=== PATIENT | female | born 1940 | race Native Hawaiian/Other Pacific Islander ===

== ENCOUNTER → 2017-04-29 | Outpatient (CLI) | payer MEDICARE ==
--- NOTE | 2017-04-30 12:15 | PCN ---
DATE OF SERVICE: 04/29/2017 STRESS ECHOCARDIOGRAM INDICATION: Chest pain. BASELINE HEART RATE: 66 BASELINE BLOOD PRESSURE: 130/62 MAXIMUM HEART RATE: 128 MAXIMUM BLOOD PRESSURE: 202/52 85% MPHR: 123 100% MPHR: 145 METS: 7.0 MAXIMUM STAGE REACHED: 2 TOTAL EXERCISE TIME: 5:30 Baseline EKG shows sinus rhythm, normal axis, normal interval. Patient exercised on Benja protocol for a total of 5:30 minutes achieved 7.0 METS, 88% of predicted maximum heart rate without chest pain or diagnostic ST segment depression. Baseline echo shows normal left ventricular size, wall motion and systolic function. Post-exercise, there is normal hyperdynamic response of all segments of myocardium noted. CONCLUSION: 1. Limited exercise tolerance. 2. Negative stress test by EKG criteria. 3. Negative stress echo. MTDD
== END | disposition home or self-care (01) ==
LOC: RADNMMAIN 09:49
PROVIDERS: ATTEND Family Medicine
DX: R07.89 Other chest pain (principal); I10 Essential (primary) hypertension
CPT/HCPCS: 93017; 93350

== ENCOUNTER → 2021-01-23 | Outpatient (CLI) | payer MEDICARE ==
--- NOTE | 2021-01-23 09:07 | CT ---
EXAMINATION TYPE: CT angio head DATE OF EXAM: 01/23/2021 8:21 AM COMPARISON: CT and MRI brain June 19, 2016. HISTORY: Head pressure, dizziness, tinnitus, CT DLP: 1911 mGycm Automated exposure control for dose reduction was used. TECHNIQUE: Performed without and with IV Contrast, patient injected with 100 mL of Isovue 370. 3D reconstructed images are created on an independent workstation and reviewed.. FINDINGS: Noncontrast images show no acute intracranial hemorrhage or midline shift. Mild ventricular and sulca l prominence. -white matter differentiation maintained. Globes are intact and visualized sinuses are clear. No suspicious new opacification mastoid air cells. There is codominant vertebrobasilar system patent to basilar junction. There is patent right posterio r communicating artery and patent left posterior communicating artery. Hypoplastic left P1 segment wi th filling of left P2 segment due to patent left posterior communicating artery. No significant focal stenosis or aneurysmal change. There is hypoplastic right A1 segment with filling of the A2 segment due to patent anterior communicating artery. No significant focal stenosis or aneurysmal change. IMPRESSION: No aneurysmal change to level of [place]. No acute findings evident.
== END | disposition home or self-care (01) ==
LOC: RADCTMAIN 07:08
PROVIDERS: ATTEND Family Medicine
DX: R42 Dizziness and giddiness (principal); H93.19 Tinnitus, unspecified ear
CPT/HCPCS: 82565; 84520; 70496; 36415; Q9967

== ENCOUNTER 2021-04-25 15:31 | Emergency (ER) | payer MEDICARE ==
[2021-04-25 16:54] VITALS: PULSE 71; TEMP 97.9
[2021-04-25] MEDS ORDERED: MECLIZINE 25 MG TAB PO STA (17:12)
--- NOTE | 2021-04-25 17:20 | ED ---
General Adult HPI - General Chief complaint: Dizziness Stated complaint: dizziness Time Seen by Provider: 04/25/21 16:50 Source: patient, RN notes reviewed, old records reviewed Mode of arrival: wheelchair Limitations: no limitations - History of Present Illness Initial comments: This is a 80-year-old female presents emergency Department complaining of intermittent dizziness over the last month. Patient states she feels as though she's given a fall over when it occurs and it typically lasts for a few minutes to an hour. Patient states movement does increase slightly. Patient states she had in the waiting room because currently she only has now she looks left to right. Patient denies any headache. Patient denies any numbness weakness. Patient denies any recent fever chills or cough per patient denies any new tinnitus or deafness. Patient denies chest pain palpitations difficulty breathing shortness breath. Patient denies any recent nausea vomiting diarrhea. - Related Data Home Medications Medication Instructions Recorded Confirmed ALPRAZolam [Xanax] 0.25 mg PO BID PRN 06/19/16 04/25/21 Lisinopril-Hctz 20-12.5 mg 1 tab PO DAILY 04/25/21 04/25/21 [Zestoretic 20-12.5] methocarbamoL [Methocarbamol] 500 mg PO TID PRN 04/25/21 04/25/21 Previous Rx's Medication Instructions Recorded Meclizine [Antivert] 25 mg PO TID #20 tab 04/25/21 Allergies Allergy/AdvReac Type Severity Reaction Status Date / Time chocolate flavor Allergy Rash/Hives Verified 04/25/21 18:33 Review of Systems ROS Statement: Those systems with pertinent positive or pertinent negative responses have been documented in the HPI. ROS Other: All systems not noted in ROS Statement are negative. 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 Patient is nontoxic and well- hydrated and is in mild distress. ENT: Neck is soft and supple. No significant lymphadenopathy is noted. Oropharynx is clear. Moist mucous membranes. Neck has full range of motion without el iciting any pain. EYES: The sclera were anicteric and conjunctiva were pink and moist. Extraocular movements were intact and pupils were equal round and reactive to light. Eyelids were unremarkable. PULMONARY: Unlabored respirations. Good breath sounds bilaterally. No audible rales rhonchi or wheezing was noted. CARDIOVASCULAR: There is a regular rate and rhythm without any murmurs gallops or rubs. ABDOMEN: Soft and nontender with normal bowel sounds. SKIN: Skin is clear with no lesions or rashes and otherwise unremarkable. NEUROLOGIC: Patient is alert and oriented x3. Cranial nerves II through XII are grossly intact. Motor and sensory are also intact. Normal speech, volume and content. Symmetrical smile. Cerebellar exam grossly intact. Patient moves her head left to right she feels the sensation of the dizziness she was describing earlier occur. MUSCULOSKELETAL: Normal extremities with adequate strength and full range of motion. No lower extremity swelling or edema. No calf tenderness. LYMPHATICS: No significant lymphadenopathy is noted PSYCHIATRIC: Normal psychiatric evaluation. Limitations: no limitations Course Vital Signs 04/25/21 16:51 Temperature 97.9 F Pulse Rate 71 Respiratory 20 Rate Blood Pressure 165/73 O2 Sat by Pulse 99 Oximetry Medical Decision Making - Medical Decision Making chest x-ray shows no acute abnormality. CT of the brain shows no acute abnormality. Patient received Antivert in the emergency department seemed to improve her symptoms. Patient will be discharged with the same. EKG shows normal sinus rhythm at 69 bpm GA interval is 174 QRS is 84 QT interval 418 QTC is 447. Patient's EKG shows no ST segment elevation or depression. - Lab Data Result diagrams: 04/25/21 17:34 04/25/21 17:34 Lab Results 04/25/21 04/25/21 04/25/21 Range/Units 17:34 17:34 17:34 WBC 10.7 H (3.8-10.6) k/uL RBC 5.03 (3.80-5.40) m/uL Hgb 14.3 (11.4-16.0) gm/dL Hct 42.4 (34.0-46.0) % MCV 84.4 (80.0-100.0) fL MCH 28.4 (25.0-35.0) pg MCHC 33.6 (31.0-37.0) g/dL RDW 13.1 (11.5-15.5) % Plt Count 264 (150-450) k/uL MPV 7.9 Neutrophils % 74 % Lymphocytes % 18 % Monocytes % 5 % Eosinophils % 1 % Basophils % 1 % Neutrophils # 7.9 H (1.3-7.7) k/uL Lymphocytes # 1.9 (1.0-4.8) k/uL Monocytes # 0.5 (0-1.0) k/uL Eosinophils # 0.1 (0-0.7) k/uL Basophils # 0.1 (0-0.2) k/uL PT 10.2 (9.0-12.0) sec INR 0.9 (<1.2) APTT 22.7 (22.0-30.0) sec Sodium 131 L (137-145) mmol/L Potassium 3.8 (3.5-5.1) mmol/L Chloride 93 L (98-107) mmol/L Carbon Dioxide 27 (22-30) mmol/L Anion Gap 11 mmol/L BUN 15 (7-17) mg/dL Creatinine 0.79 (0.52-1.04) mg/dL Est GFR (CKD-EPI)AfAm 83 (>60 ml/min/1.73 sqM) Est GFR (CKD-EPI)NonAf 72 (>60 ml/min/1.73 sqM) Glucose 108 H (74-99) mg/dL Calcium 9.4 (8.4-10.2) mg/dL Magnesium 2.0 (1.6-2.3) mg/dL Total Bilirubin 0.5 (0.2-1.3) mg/dL AST 28 (14-36) U/L ALT 16 (4-34) U/L Alkaline Phosphatase 116 (38-126) U/L Troponin I (0.000-0.034) ng/mL Total Protein 7.7 (6.3-8.2) g/dL Albumin 4.8 (3.5-5.0) g/dL 04/25/21 Range/Units 17:34 WBC (3.8-10.6) k/uL RBC (3.80-5.40) m/uL Hgb (11.4-16.0) gm/dL Hct (34.0-46.0) % MCV (80.0-100.0) fL MCH (25.0-35.0) pg MCHC (31.0-37.0) g/dL RDW (11.5-15.5) % Plt Count (150-450) k/uL MPV Neutrophils % % Lymphocytes % % Monocytes % % Eosinophils % % Basophils % % Neutrophils # (1.3-7.7) k/uL Lymphocytes # (1.0-4.8) k/uL Monocytes # (0-1.0) k/uL Eosinophils # (0-0.7) k/uL Basophils # (0-0.2) k/uL PT (9.0-12.0) sec INR (<1.2) APTT (22.0-30.0) sec Sodium (137-145) mmol/L Potassium (3.5-5.1) mmol/L Chloride (98-107) mmol/L Carbon Dioxide (22-30) mmol/L Anion Gap mmol/L BUN (7-17) mg/dL Creatinine (0.52-1.04) mg/dL Est GFR (CKD-EPI)AfAm (>60 ml/min/1.73 sqM) Est GFR (CKD-EPI)NonAf (>60 ml/min/1.73 sqM) Glucose (74-99) mg/dL Calcium (8.4-10.2) mg/dL Magnesium (1.6-2.3) mg/dL Total Bilirubin (0.2-1.3) mg/dL AST (14-36) U/L ALT (4-34) U/L Alkaline Phosphatase (38-126) U/L Troponin I <0.012 (0.000-0.034) ng/mL Total Protein (6.3-8.2) g/dL Albumin (3.5-5.0) g/dL Disposition Clinical Impression: Vertigo Disposition: HOME SELF-CARE Instructions (If sedation given, give patient instructions): Vertigo (ED) Prescriptions: Meclizine [Antivert] 25 mg PO TID #20 tab Is patient prescribed a controlled substance at d/c from ED?: No Referrals: Frankie Cardenas MD [Primary Care Provider] - 1-2 days Time of Disposition: 18:37
[2021-04-25 17:42] LABS: Basophils # (A) 0.1 k/uL (0-0.2); Basophils % (A) 1 %; Eosinophils # (A) 0.1 k/uL (0-0.7); Eosinophils % (A) 1 %; HCT 42.4 % (34.0-46.0); HGB 14.3 gm/dL (11.4-16.0); Lymphocytes # (A) 1.9 k/uL (1.0-4.8); Lymphocytes % (A) 18 %; MCH 28.4 pg (25.0-35.0); MCHC 33.6 g/dL (31.0-37.0); MCV 84.4 fL (80.0-100.0); Mean Platelet Volume 7.9; Monocytes # (A) 0.5 k/uL (0-1.0); Monocytes % (A) 5 %; Neutrophils # (A) 7.9 k/uL (1.3-7.7); Neutrophils % (A) 74 %; Platelet Count 264 k/uL (150-450); RBC 5.03 m/uL (3.80-5.40); RDW 13.1 % (11.5-15.5); WBC 10.7 k/uL (3.8-10.6)
[2021-04-25 17:54] LABS: Albumin 4.8 g/dL (3.5-5.0); Calcium 9.4 mg/dL (8.4-10.2); Potassium 3.8 mmol/L (3.5-5.1); Total Bilirubin 0.5 mg/dL (0.2-1.3); Total Protein 7.7 g/dL (6.3-8.2)
[2021-04-25 17:56] LABS: INR 0.9 (<1.2); Partial Thromboplastin Time 22.7 sec (22.0-30.0); Prothrombin Time 10.2 sec (9.0-12.0)
--- NOTE | 2021-04-25 18:08 | CT ---
EXAMINATION TYPE: CT brain wo con DATE OF EXAM: 04/25/2021 COMPARISON: 06/19/2016 HISTORY: Dizziness. CT DLP: 1019.4 mGycm Automated exposure control for dose reduction was used. Exam performed without contrast. There is some cerebral cortical atrophy. There is no mass effect nor midline shift. There is no sign of intracranial hemorrhage. Calvarium is intact. Skull base is intact. There is normal aeration of th e mastoid sinuses. IMPRESSION: Mild atrophy. No acute intracranial abnormality.
--- NOTE | 2021-04-25 18:10 | XR ---
EXAMINATION TYPE: XR chest 2V DATE OF EXAM: 04/25/2021 COMPARISON: 06/19/2016 HISTORY: Dizziness. Chest pain. TECHNIQUE: FINDINGS: Heart is normal. Lungs are clear of infiltrate. Thoracic aorta is atheromatous. There are n o hilar masses. There are chest leads. The bony thorax is intact. IMPRESSION: No active cardiopulmonary disease. No change. Normal heart.
[2021-04-25 19:23] VITALS: RESP 18
[2021-04-25 19:24] VITALS: BP 175/69
== END 2021-04-25 19:15 | disposition home or self-care (01) ==
LOC: EC 15:31
DX: R42 Dizziness and giddiness (principal); I10 Essential (primary) hypertension; F41.9 Anxiety disorder, unspecified
CPT/HCPCS: 36415; 70450; 71046; 80053; 83735; 84484; 85025; 85610; 85730; 93005; 99285

== ENCOUNTER 2021-12-01 18:06 | Inpatient (IN) | payer MEDICARE ==
[2021-12-01] MEDS ORDERED: DICYCLOMINE 10 MG/ML 2 ML AMP IM STA (19:19)
[2021-12-01] MEDS ORDERED: ONDANSETRON 4 MG/2 ML VIAL IVP STA (19:19)
[2021-12-01] MEDS ORDERED: SODIUM CHLORIDE 0.9% 1,000 ML IV STA (19:19)
[2021-12-01] MEDS ORDERED: SODIUM CHLORIDE 0.9% 500 ML 500 ML IV STA (19:19)
[2021-12-01] MEDS ORDERED: FAMOTIDINE 20 MG/2 ML VIAL IV STA (19:20)
--- NOTE | 2021-12-01 19:22 | ED ---
General Adult HPI - General Chief complaint: Abdominal Pain Stated complaint: upper abd pain Time Seen by Provider: 12/01/21 19:07 Source: patient, family, RN notes reviewed Mode of arrival: ambulatory Limitations: no limitations - History of Present Illness Initial comments: Patient is a pleasant 81-year-old female presenting to the emergency department for nausea vomiting and diarrhea. Patient also having upper abdominal discomfort. Onset of symptoms was this morning. Patient has vomited approximately 5 times. Patient also has had some diarrhea, somewhat similar. Patient has discomfort in the mid upper abdomen. No history of similar symptoms previously. No fever. No upper respiratory symptoms or cough. - Related Data Home Medications Medication Instructions Recorded Confirmed ALPRAZolam [Xanax] 0.25 mg PO BID PRN 06/19/16 04/25/21 Lisinopril-Hctz 20-12.5 mg 1 tab PO DAILY 04/25/21 04/25/21 [Zestoretic 20-12.5] methocarbamoL [Methocarbamol] 500 mg PO TID PRN 04/25/21 04/25/21 Previous Rx's Medication Instructions Recorded Meclizine [Antivert] 25 mg PO TID #20 tab 04/25/21 Allergies Allergy/AdvReac Type Severity Reaction Status Date / Time chocolate flavor Allergy Rash/Hives Verified 12/01/21 18:51 Review of Systems ROS Statement: Those systems with pertinent positive or pertinent negative responses have been documented in the HPI. ROS Other: All systems not noted in ROS Statement are negative. Constitutional: Denies: fever, chills Eyes: Denies: eye pain ENT: Denies: ear pain, congestion Respiratory: Denies: cough, dyspnea Cardiovascular: Denies: chest pain Endocrine: Denies: fatigue Gastrointestinal: Reports: as per HPI, abdominal pain, nausea, vomiting, eugene rrhea. 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 History of Any Multi-Drug Resistant Organisms: None Reported Past Surgical History: No Surgical Hx Reported Past Psychological History: Anxiety Smoking Status: Never smoker Past Alcohol Use History: None Reported Past Drug Use History: None Reported General Exam Limitations: no limitations General appearance: alert, in no apparent distress Head exam: Present: normocephalic Eye exam: Present: normal appearance Neck exam: Present: normal inspection Respiratory exam: Present: normal lung sounds bilaterally Cardiovascular Exam: Present: regular rate, normal rhythm Expanded Peripheral pulses: 2+: Radial (R), Radial (L), Dorsalis Pedis (R), Dorsalis Pedis (L) GI/Abdominal exam: Present: soft, tenderness (Moderate epigastric tenderness to palpation), normal bowel sounds. Absent: distended, guarding, rebound, rigid, pulsatile mass Extremities exam: Present: normal inspection Neurological exam: Present: alert Psychiatric exam: Present: normal affect, normal mood Course Vital Signs 12/01/21 18:48 Temperature 98 F Pulse Rate 72 Respiratory 18 Rate Blood Pressure 135/67 O2 Sat by Pulse 97 Oximetry EKG Findings - EKG Comments: EKG Findings:: No sinus rhythm rate 74. [place] 170. QRS 82. QT 416. QTc 461. Normal axis. Minimal LVH criteria. No acute ST change. Medical Decision Making - Medical Decision Making Patient reevaluated. Patient and family updated. Case was discussed with Dr. crockett, who will admit covering hospital call. Computed tomography scan has been ordered. - Lab Data Result diagrams: 12/01/21 19:34 12/01/21 19:34 Lab Results 12/01/21 12/01/21 12/01/21 Range/Units 19:34 19:34 19:34 WBC 18.0 H (3.8-10.6) k/uL RBC 4.86 (3.80-5.40) m/uL Hgb 14.3 (11.4-16.0) gm/dL Hct 42.6 (34.0-46.0) % MCV 87.5 (80.0-100.0) fL MCH 29.4 (25.0-35.0) pg MCHC 33.6 (31.0-37.0) g/dL RDW 13.8 (11.5-15.5) % Plt Count 294 (150-450) k/uL MPV 8.9 Neutrophils % 95 % Lymphocytes % 3 % Monocytes % 2 % Eosinophils % 0 % Basophils % 0 % Neutrophils # 17.0 H (1.3-7.7) k/uL Lymphocytes # 0.6 L (1.0-4.8) k/uL Monocytes # 0.3 (0-1.0) k/uL Eosinophils # 0.0 (0-0.7) k/uL Basophils # 0.0 (0-0.2) k/uL PT 11.0 (9.0-12.0) sec INR 1.0 (<1.2) APTT 21.8 L (22.0-30.0) sec Sodium 133 L (137-145) mmol/L Potassium 3.9 (3.5-5.1) mmol/L Chloride 95 L (98-107) mmol/L Carbon Dioxide 27 (22-30) mmol/L Anion Gap 11 mmol/L BUN 23 H (7-17) mg/dL Creatinine 1.22 H (0.52-1.04) mg/dL Est GFR (CKD-EPI)AfAm 48 (>60 ml/min/1.73 sqM) Est GFR (CKD-EPI)NonAf 42 (>60 ml/min/1.73 sqM) Glucose 191 H (74-99) mg/dL Calcium 9.4 (8.4-10.2) mg/dL Total Bilirubin 0.7 (0.2-1.3) mg/dL AST 55 H (14-36) U/L ALT 38 H (4-34) U/L Alkaline Phosphatase 116 (38-126) U/L Troponin I (0.000-0.034) ng/mL Total Protein 7.8 (6.3-8.2) g/dL Albumin 4.6 (3.5-5.0) g/dL Amylase 3067 H* (30-110) U/L Coronavirus (PCR) (Not Detectd) 12/01/21 12/01/21 Range/Units 19:34 19:34 WBC (3.8-10.6) k/uL RBC (3.80-5.40) m/uL Hgb (11.4-16.0) gm/dL Hct (34.0-46.0) % MCV (80.0-100.0) fL MCH (25.0-35.0) pg MCHC (31.0-37.0) g/dL RDW (11.5-15.5) % Plt Count (150-450) k/uL MPV Neutrophils % % Lymphocytes % % Monocytes % % Eosinophils % % Basophils % % Neutrophils # (1.3-7.7) k/uL Lymphocytes # (1.0-4.8) k/uL Monocytes # (0-1.0) k/uL Eosinophils # (0-0.7) k/uL Basophils # (0-0.2) k/uL PT (9.0-12.0) sec INR (<1.2) APTT (22.0-30.0) sec Sodium (137-145) mmol/L Potassium (3.5-5.1) mmol/L Chloride (98-107) mmol/L Carbon Dioxide (22-30) mmol/L Anion Gap mmol/L BUN (7-17) mg/dL Creatinine (0.52-1.04) mg/dL Est GFR (CKD-EPI)AfAm (>60 ml/min/1.73 sqM) Est GFR (CKD-EPI)NonAf (>60 ml/min/1.73 sqM) Glucose (74-99) mg/dL Calcium (8.4-10.2) mg/dL Total Bilirubin (0.2-1.3) mg/dL AST (14-36) U/L ALT (4-34) U/L Alkaline Phosphatase (38-126) U/L Troponin I 0.014 (0.000-0.034) ng/mL Total Protein (6.3-8.2) g/dL Albumin (3.5-5.0) g/dL Amylase (30-110) U/L Coronavirus (PCR) Not Detected (Not Detectd) Disposition Clinical Impression: Pancreatitis Disposition: ADMITTED IP TO THIS HOSP Is patient prescribed a controlled substance at d/c from ED?: No Referrals: Frankie Cardenas MD [Primary Care Provider] - 1-2 days Decision Time: 20:51
[2021-12-01 19:48] LABS: Basophils % (A) 0 %; Eosinophils % (A) 0 %; HCT 42.6 % (34.0-46.0); HGB 14.3 gm/dL (11.4-16.0); Lymphocytes # (A) 0.6 k/uL (1.0-4.8); Lymphocytes % (A) 3 %; MCH 29.4 pg (25.0-35.0); MCHC 33.6 g/dL (31.0-37.0); MCV 87.5 fL (80.0-100.0); Mean Platelet Volume 8.9; Monocytes # (A) 0.3 k/uL (0-1.0); Monocytes % (A) 2 %; Neutrophils % (A) 95 %; Platelet Count 294 k/uL (150-450); RBC 4.86 m/uL (3.80-5.40); RDW 13.8 % (11.5-15.5)
[2021-12-01 20:06] LABS: Albumin 4.6 g/dL (3.5-5.0); Calcium 9.4 mg/dL (8.4-10.2); Potassium 3.9 mmol/L (3.5-5.1); Total Bilirubin 0.7 mg/dL (0.2-1.3); Total Protein 7.8 g/dL (6.3-8.2)
[2021-12-01 20:25] LABS: Partial Thromboplastin Time 21.8 sec (22.0-30.0)
[2021-12-01] MEDS ORDERED: NALOXONE 0.4 MG/ML 1 ML VIAL IV PRN (20:51)
--- NOTE | 2021-12-01 22:01 | CT ---
CT scan abdomen and pelvis. History abdominal pain. Comparison none. TECHNIQUE: Images obtained from the diaphragm to the mid pelvis with intravenous contrast. There are delayed rodrigue ges. The contrast was Isovue 80 mL. FINDINGS: There is some mild interstitial infiltrate in the posterior lung martinez. Heart is enlarged. There is no pericardial effusion. There is no pleural effusion. Liver spleen and stomach appear intact. Gallbl adder is intact. The gallbladder is distended and measures 3.8 cm in diameter. There is no evidence of pancreatic mass. There is mild retroperitoneal edema in the right anterior pa rarenal space. Pancreatic duct is not dilated. The bile ducts are not dilated. There is no adrenal mass. Kidneys show satisfactory contrast opacification. There is no hydronephrosi s. There is no retroperitoneal adenopathy. Ureters are not dilated. Appendix appears normal. There is no sign of mesenteric adenopathy. The lumbar vertebra have normal alignment. Posterior elements are intact. There is no compression fra cture. There is some spurring in the lumbar spine. Sacroiliac joints are intact. IMPRESSION: There is right-sided retroperitoneal edema with fluid in the anterior pararenal space and adjacent t o the duodenum. This could relate to some duodenitis. No significant edema seen of the pancreatic hea d. No pancreatic mass. Pancreatitis is not excluded.
[2021-12-01 22:38] LABS: Appearance,Urine Clear (Clear); Bilirubin,Urine Negative (Negative); Blood,Urine Negative (Negative); Color,Urine Light Yellow; Glucose,Urine (UA) Trace (Negative); Ketones,Urine Negative (Negative); Leukocyte Esterase,Urine Negative (Negative); Nitrite,Urine Negative (Negative); PH, Urine 6.5 (5.0-8.0); Protein,Urine Negative (Negative); Specific Gravity,Urine 1.036 (1.001-1.035); Urobilinogen,Urine <2.0 mg/dL (<2.0)
[2021-12-01] MEDS: SODIUM CHLORIDE 0.9% 1,000 ML IV SCH (22:46)
[2021-12-01] MEDS: HYDROmorphone 0.5 MG/0.5 ML SYRINGE IVP PRN (23:30)
--- NOTE | 2021-12-02 00:12 | P.HPIM ---
History of Present Illness H&P Date: 12/01/21 Patient is an 81-year-old female with a PMH of hypertension who presents to the emergency room with complaints of abdominal pain. The patient reports that the pain started suddenly this morning, nonradiating, epigastric, 10 out of 10 in intensity, without alleviating or exacerbating features. She denied any prior history of such pain. Reports the pain was associated with nausea and too many episodes of vomiting to count. She reports biliary material in her vomiting without blood or fecal matter. Denied experiencing diarrhea. Further denied fever, chills. Reports no history of alcohol use or history of gallstones. Further denied chest discomfort, shortness of breath, cough, dizziness, headaches. CT abdomen and pelvis revealed findings consistent with pancreatic hepatitis and duodenitis. EKG revealed normal sinus rhythm at [address]/T-wave changes noted as reviewed by me. Laboratory evaluation was remarkable for leukocytosis of 18.0, lipase 01827, total bilirubin 0.7, sodium 133, BUN 23, creatinine 1.22, glucose 91, AST 55, ALT 38. Review of systems: Pertinent positives and negatives as discussed in HPI, a complete review of systems was performed and all other systems are negative. Physical examination: General: non toxic, no distress, appears at stated age, normal weight Derm: no unusual rashes/lesions no unusual ecchymoses, warm, dry Head: atraumatic, normocephalic, symmetric Eyes: EOMI, no lid lag, anicteric sclera, pupils equal round reactive to light ENT: Nose and ears atraumatic, no thrush, no pharyngeal erythema Neck: No thyromegaly, no cervical lymphadenopathy, trachea midline, supple Mouth: no lip lesion, mucus membranes moist Cardiovascular: S1S2 reg, no murmur, positive posterior tibial pulse bilateral, no edema, capillary refill less than 2 seconds Lungs: CTA bilateral, no rhonchi, no rales , no accessory muscle use Abdominal: soft, mild to moderate epigastric tenderness, no guarding, no appreciable organomegaly, normal bowel sounds Ext: no gross muscle atrophy, muscle strength 5 out of 5 in all 4 extremities grossly, no contractures, Neuro: CN II-XI grossly intact, light touch intact all 4 extremities, finger to nose within normal limits, Psych: Alert, oriented, appropriate affect Assessment/plan Acute pancreatitis, unclear etiology -Pain control -IV fluids -Discussed with the ED physician regarding no in-house GI service, who subsequently stated that no nearby facilities are accepting patients -Consult surgery in setting of gallbladder dilatation -NPO for now -Pain control -IVFs -Anti-emetics BUCK -Likely due to dehydration from nausea and vomiting -IV fluids -Monitor BMP Hypochloremic hyponatremia -Likely secondary to excessive vomiting with dehydration Hyperglycemia -Check A1c DVT prophylaxis -Heparin Subcu The patient is admitted with an anticipated greater than 2 midnight stay for evaluation of pancreatitis CODE STATUS: Full Code Discussed with: Patient Anticipated discharge date: 2-[address]: Home 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 History of Any Multi-Drug Resistant Organisms: None Reported Past Surgical History: No Surgical Hx Reported Past Psychological History: Anxiety Smoking Status: Never smoker Past Alcohol Use History: None Reported Past Drug Use History: None Reported Medications and Allergies Home Medications Medication Instructions Recorded Confirmed Type ALPRAZolam [Xanax] 0.25 mg PO BID PRN 06/19/16 12/01/21 History Lisinopril-Hctz 20-12.5 mg 1 tab PO HS 04/25/21 12/01/21 History [Zestoretic 20-12.5] Allergies Allergy/AdvReac Type Severity Reaction Status Date / Time chocolate flavor Allergy Rash/Hives Verified 12/01/21 21:21 Physical Exam Vitals: Vital Signs Temp Pulse Pulse Resp BP BP Pulse Ox 12/01/21 22:30 97.8 F 87 16 189/73 97 12/01/21 21:38 87 20 151/83 99 12/01/21 18:48 98 F 72 18 135/67 97 Intake and Output 12/01/21 12/01/21 12/01/21 06:59 14:59 22:59 Other: Weight 63.503 kg Results CBC & Chem 7: 12/01/21 19:34 12/01/21 19:34 Labs: Abnormal Lab Results - Last 24 Hours (Table) 12/01/21 12/01/21 12/01/21 Range/Units 19:34 19:34 19:34 WBC 18.0 H (3.8-10.6) k/uL Neutrophils # 17.0 H (1.3-7.7) k/uL Lymphocytes # 0.6 L (1.0-4.8) k/uL APTT 21.8 L (22.0-30.0) sec Sodium 133 L (137-145) mmol/L Chloride 95 L (98-107) mmol/L BUN 23 H (7-17) mg/dL Creatinine 1.22 H (0.52-1.04) mg/dL Glucose 191 H (74-99) mg/dL AST 55 H (14-36) U/L ALT 38 H (4-34) U/L Amylase 3067 H* (30-110) U/L Lipase 97349 H (23-300) U/L Ur Specific [place] (1.001-1.035) Urine Glucose (UA) (Negative) 12/01/21 Range/Units 22:30 WBC (3.8-10.6) k/uL Neutrophils # (1.3-7.7) k/uL Lymphocytes # (1.0-4.8) k/uL APTT (22.0-30.0) sec Sodium (137-145) mmol/L Chloride (98-107) mmol/L BUN (7-17) mg/dL Creatinine (0.52-1.04) mg/dL Glucose (74-99) mg/dL AST (14-36) U/L ALT (4-34) U/L Amylase (30-110) U/L Lipase (23-300) U/L Ur Specific [place] 1.036 H (1.001-1.035) Urine Glucose (UA) Trace H (Negative)
[2021-12-02] MEDS: HYDROmorphone 0.5 MG/0.5 ML SYRINGE IVP PRN ×4 (03:05→20:41)
[2021-12-02] MEDS: SODIUM CHLORIDE 0.9% 1,000 ML IV SCH ×3 (05:23→21:56)
[2021-12-02 07:46] LABS: Albumin 3.2 g/dL (3.5-5.0); Calcium 7.6 mg/dL (8.4-10.2); Potassium 3.8 mmol/L (3.5-5.1); Total Bilirubin 0.5 mg/dL (0.2-1.3); Total Protein 5.9 g/dL (6.3-8.2)
[2021-12-02] MEDS: HEPARIN SODIUM,PORCINE/PF 5,000 UNIT/0.5 ML SYRINGE SQ SCH ×2 (08:19→15:45)
[2021-12-02] MEDS: PANTOPRAZOLE 40 MG/10 ML VIAL IV SCH (08:19)
[2021-12-02] MEDS: ONDANSETRON 4 MG/2 ML VIAL IVP PRN ×2 (08:57→15:45)
--- NOTE | 2021-12-02 11:32 | P.PN ---
Subjective Progress Note Date: 12/02/21 Principal diagnosis: Patient still complaining of abdominal pain but it's improving Physical examination: General: non toxic, no distress, appears at stated age, normal weight Derm: no unusual rashes/lesions no unusual ecchymoses, warm, dry Head: atraumatic, normocephalic, symmetric Eyes: EOMI, no lid lag, anicteric sclera, pupils equal round reactive to light ENT: Nose and ears atraumatic, no thrush, no pharyngeal erythema Neck: No thyromegaly, no cervical lymphadenopathy, trachea midline, supple Mouth: no lip lesion, mucus membranes moist Cardiovascular: S1S2 reg, no murmur, positive posterior tibial pulse bilateral, no edema, capillary refill less than 2 seconds Lungs: CTA bilateral, no rhonchi, no rales , no accessory muscle use Abdominal: soft, mild to moderate epigastric tenderness, no guarding, no appreciable organomegaly, normal bowel sounds Ext: no gross muscle atrophy, muscle strength 5 out of 5 in all 4 extremities grossly, no contractures, Neuro: CN II-XI grossly intact, light touch intact all 4 extremities, finger to nose within normal limits, Psych: Alert, oriented, appropriate affect Assessment/plan Acute pancreatitis, unclear etiology Overall improving continue patient on nothing by mouth diet -Pain control -IV fluids -Discussed with the ED physician regarding no in-house GI service, who subsequently stated that no nearby facilities are accepting patients -Consult surgery in setting of gallbladder dilatation -NPO for now -Pain control -IVFs -Anti-emetics BUCK -Likely due to dehydration from nausea and vomiting -IV fluids -Monitor BMP Hypochloremic hyponatremia -Likely secondary to excessive vomiting with dehydration Hyperglycemia -Check A1c DVT prophylaxis -Heparin Subcu Objective - Vital Signs Vital signs: Vital Signs Temp 98.1 F 12/02/21 04:55 Pulse 70 12/02/21 04:55 Resp 16 12/02/21 08:00 BP 144/65 12/02/21 04:55 Pulse Ox 99 12/02/21 04:55 Intake & Output 12/01/21 12/02/21 12/02/21 18:59 06:59 18:59 Intake Total 1890 Balance 1890 Weight 63.503 kg 63.503 kg Intake: Intake, IV Titration 1300 Amount Sodium Chloride 0.9% 1, 1300 000 ml @ 130 mls/hr IV . Q7H42M [facility] Rx#:[id number] Oral 590 Other: # Voids 3 - Labs CBC & Chem 7: 12/01/21 19:34 12/02/21 06:57 Labs: Abnormal Lab Results - Last 24 Hours (Table) 12/01/21 12/01/21 12/01/21 Range/Units 19:34 19:34 19:34 WBC 18.0 H (3.8-10.6) k/uL Neutrophils # 17.0 H (1.3-7.7) k/uL Lymphocytes # 0.6 L (1.0-4.8) k/uL APTT 21.8 L (22.0-30.0) sec Sodium 133 L (137-145) mmol/L Chloride 95 L (98-107) mmol/L BUN 23 H (7-17) mg/dL Creatinine 1.22 H (0.52-1.04) mg/dL Glucose 191 H (74-99) mg/dL Calcium (8.4-10.2) mg/dL AST 55 H (14-36) U/L ALT 38 H (4-34) U/L Total Protein (6.3-8.2) g/dL Albumin (3.5-5.0) g/dL Amylase 3067 H* (30-110) U/L Lipase 96803 H (23-300) U/L Ur Specific [place] (1.001-1.035) Urine Glucose (UA) (Negative) 12/01/21 12/02/21 Range/Units 22:30 06:57 WBC (3.8-10.6) k/uL Neutrophils # (1.3-7.7) k/uL Lymphocytes # (1.0-4.8) k/uL APTT (22.0-30.0) sec Sodium 133 L (137-145) mmol/L Chloride (98-107) mmol/L BUN 19 H (7-17) mg/dL Creatinine (0.52-1.04) mg/dL Glucose 133 H (74-99) mg/dL Calcium 7.6 L (8.4-10.2) mg/dL AST (14-36) U/L ALT (4-34) U/L Total Protein 5.9 L (6.3-8.2) g/dL Albumin 3.2 L (3.5-5.0) g/dL Amylase 967 H* (30-110) U/L Lipase 3430 H (23-300) U/L Ur Specific [place] 1.036 H (1.001-1.035) Urine Glucose (UA) Trace H (Negative)
[2021-12-02 11:44] LABS: HCT 34.4 % (37.2-46.3); HGB 11.4 g/dL (12.0-15.0); MCH 28.9 pg (27.0-32.0); MCHC 33.1 g/dL (32.0-37.0); MCV 87.3 fL (80.0-97.0); Mean Platelet Volume 11.6 fL (9.5-12.2); NRBC Per 100 WBC 0 /100 WBCS (0.0-0.0); Platelet Count 249 X 10*3/uL (140-440); RBC 3.94 X 10*6/uL (4.10-5.20); RDW 13.4 % (11.5-14.5); WBC 13.21 X 10*3/uL (4.50-10.00)
--- NOTE | 2021-12-02 14:09 | P.GSCN ---
History of Present Illness Consult date: 12/02/21 History of present illness: CHIEF COMPLAINT: Pancreatitis HISTORY OF PRESENT ILLNESS: The patient is a 81-year-old female admitted for upper abdominal pain that started 2 days ago, 11/30/2021. She reports eating breakfast and include cereal. Later that day she developed increasing epigastric abdominal pain. The pain was moderate to severe. She reports family history of gallbladder disease including gallbladder removal and her daughter as well as granddaughter. Her pain is intermittent intolerable today. She has been nothing by mouth. PAST MEDICAL HISTORY: See list and reviewed PAST SURGICAL HISTORY: See list and reviewed MEDICATIONS: See list and reviewed ALLERGIES: See list and reviewed SOCIAL HISTORY: See list and reviewed FAMILY HISTORY: See list and reviewed REVIEW OF ORGAN SYSTEMS: CONSTITUTIONAL: No fevers or chills. No recent weight loss. EYES: Denies any trouble with vision. No glasses. HEENT: No difficulties with hearing. No nosebleeds. No difficulty swallowing. RESPIRATORY: Denies pneumonia. Denies any troubles with breathing or dyspnea on exertion. CARDIOVASCULAR: Denies any chest pain, palpitations, or recent heart attacks. Has hypertension. GASTROINTESTINAL: Denies fatty food intolerance. Denies change in bowel habits and gas bloat. GENITOURINARY: Denies any blood in urine or increased urinary frequency. NEUROLOGICAL: Denies any numbness or tingling along the distal extremities. No seizure disorders or headaches. MUSCULOSKELETAL: Denies any back pain, stiffness or joint arthritis. SKIN: No current skin cancer. No rash. PSYCHIATRIC: Denies current depression or suicidal thoughts. Has anxiety. ENDOCRINE: Denies current thyroid disorders. Denies any blood sugar glucose intolerance. HEME/LYMPHATIC: Denies any lumps and bumps around the neck. No recent deep venous thrombosis. ALLERGY/IMMUNOLOGY: No immunoglobulin therapy. No immune deficiencies. BREAST: Denies current breast lumps, pain or nipple discharge. PHYSICAL EXAM: VITALS: Reviewed CONSTITUTIONAL: Well developed and in no acute distress. EYES: Conjuctivae without sclera icterus. Extraocular movements grossly intact. HEAD, EARS, NOSE, THROAT: Moist buccal mucosa. Head is atraumatic, normocephalic. Hears conversational speech. No nasal drainage. NECK: Supple. No JV distention. No thyroidomegaly. RESPIRATORY: Non-labored respirations and equal bilateral excursions. No gross wheezes. CARDIOVASCULAR: Regular rate and rhythm. Extremities without moderate edema. Palpable 2+ radial pulses. ABDOMEN: Tender epigastrium. No peritonitis. LYMPH: No neck lymphadenopathy. MUSCULOSKELETAL: Nail and fingers with good capillary refill. SKIN: Warm and well perfused with good skin turgor. NEUROLOGIC: Cranial nerves II through XII grossly intact. Sensation upper and extremities intact. No focal or lateralizing signs. PSYCH: Appropriate affect. Alert and oriented to person, place and time. Displays appropriate insight. CLINCAL LABS: Reviewed. White blood cell a down from 18,000 to over 13,000. Hemoglobin down 14.3-11.4. Lipase elevated over 12,400 down to over 3400. Amylase on admission elevated over 3000. Calcium decreased from 9.4-7.6. IMAGING: CT of the abdomen and pelvis and up reviewed demonstrating dilation and inflammation of the duodenum. Pancreatic head with moderate inflammation. This is my independent interpretation. RADIOLOGY: Report reviewed of CT abdomen and pelvis demonstrating inflammation of the duodenum. Pancreatitis not excluded. ASSESSMENT: 1. Acute pancreatitis. PLAN: 1. Recommend gallbladder ultrasound to assess for causes of pancreatitis. 2. Nothing by mouth at this time with IV fluid hydration. 3. Repeat amylase lipase chemistries. ADVANCE DIRECTIVE: Thank you for this kind consultation. 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 History of Any Multi-Drug Resistant Organisms: None Reported Past Surgical History: No Surgical Hx Reported Past Psychological History: Anxiety Smoking Status: Never smoker Past Alcohol Use History: None Reported Past Drug Use History: None Reported Medications and Allergies Home Medications Medication Instructions Recorded Confirmed Type ALPRAZolam [Xanax] 0.25 mg PO BID PRN 06/19/16 12/01/21 History Lisinopril-Hctz 20-12.5 mg 1 tab PO HS 04/25/21 12/01/21 History [Zestoretic 20-12.5] Allergies Allergy/AdvReac Type Severity Reaction Status Date / Time chocolate flavor Allergy Rash/Hives Verified 12/01/21 21:21 Surgical - Exam Vital Signs Temp Pulse Resp BP Pulse Ox 98 F 72 18 135/67 97 12/01/21 18:48 12/01/21 18:48 12/01/21 18:48 12/01/21 18:48 12/01/21 18:48 Results - Labs 12/02/21 06:57 12/02/21 06:57 Abnormal Lab Results - Last 24 Hours (Table) 12/01/21 12/01/21 12/01/21 Range/Units 19:34 19:34 19:34 WBC 18.0 H (3.8-10.6) k/uL RBC (4.10-5.20) X 10*6/uL Hgb (12.0-15.0) g/dL Hct (37.2-46.3) % Neutrophils # 17.0 H (1.3-7.7) k/uL Lymphocytes # 0.6 L (1.0-4.8) k/uL APTT 21.8 L (22.0-30.0) sec Sodium 133 L (137-145) mmol/L Chloride 95 L (98-107) mmol/L BUN 23 H (7-17) mg/dL Creatinine 1.22 H (0.52-1.04) mg/dL Glucose 191 H (74-99) mg/dL Calcium (8.4-10.2) mg/dL AST 55 H (14-36) U/L ALT 38 H (4-34) U/L Total Protein (6.3-8.2) g/dL Albumin (3.5-5.0) g/dL Amylase 3067 H* (30-110) U/L Lipase 41964 H (23-300) U/L Ur Specific [place] (1.001-1.035) Urine Glucose (UA) (Negative) 12/01/21 12/02/21 12/02/21 Range/Units 22:30 06:57 06:57 WBC 13.21 H (3.8-10.6) k/uL RBC 3.94 L (4.10-5.20) X 10*6/uL Hgb 11.4 L (12.0-15.0) g/dL Hct 34.4 L (37.2-46.3) % Neutrophils # (1.3-7.7) k/uL Lymphocytes # (1.0-4.8) k/uL APTT (22.0-30.0) sec Sodium 133 L (137-145) mmol/L Chloride (98-107) mmol/L BUN 19 H (7-17) mg/dL Creatinine (0.52-1.04) mg/dL Glucose 133 H (74-99) mg/dL Calcium 7.6 L (8.4-10.2) mg/dL AST (14-36) U/L ALT (4-34) U/L Total Protein 5.9 L (6.3-8.2) g/dL Albumin 3.2 L (3.5-5.0) g/dL Amylase 967 H* (30-110) U/L Lipase 3430 H (23-300) U/L Ur Specific [place] 1.036 H (1.001-1.035) Urine Glucose (UA) Trace H (Negative) Diabetes panel 12/01/21 12/02/21 Range/Units 19:34 06:57 Sodium 133 L 133 L (137-145) mmol/L Potassium 3.9 3.8 (3.5-5.1) mmol/L Chloride 95 L 105 (98-107) mmol/L Carbon Dioxide 27 24 (22-30) mmol/L BUN 23 H 19 H (7-17) mg/dL Creatinine 1.22 H 0.97 (0.52-1.04) mg/dL Glucose 191 H 133 H (74-99) mg/dL Calcium 9.4 7.6 L (8.4-10.2) mg/dL AST 55 H 28 (14-36) U/L ALT 38 H 25 (4-34) U/L Alkaline Phosphatase 116 75 (38-126) U/L Total Protein 7.8 5.9 L (6.3-8.2) g/dL Albumin 4.6 3.2 L (3.5-5.0) g/dL Calcium panel 12/01/21 12/02/21 Range/Units 19:34 06:57 Calcium 9.4 7.6 L (8.4-10.2) mg/dL Albumin 4.6 3.2 L (3.5-5.0) g/dL Pituitary panel 12/01/21 12/02/21 Range/Units 19:34 06:57 Sodium 133 L 133 L (137-145) mmol/L Potassium 3.9 3.8 (3.5-5.1) mmol/L Chloride 95 L 105 (98-107) mmol/L Carbon Dioxide 27 24 (22-30) mmol/L BUN 23 H 19 H (7-17) mg/dL Creatinine 1.22 H 0.97 (0.52-1.04) mg/dL Glucose 191 H 133 H (74-99) mg/dL Calcium 9.4 7.6 L (8.4-10.2) mg/dL Adrenal panel 12/01/21 12/02/21 Range/Units 19:34 06:57 Sodium 133 L 133 L (137-145) mmol/L Potassium 3.9 3.8 (3.5-5.1) mmol/L Chloride 95 L 105 (98-107) mmol/L Carbon Dioxide 27 24 (22-30) mmol/L BUN 23 H 19 H (7-17) mg/dL Creatinine 1.22 H 0.97 (0.52-1.04) mg/dL Glucose 191 H 133 H (74-99) mg/dL Calcium 9.4 7.6 L (8.4-10.2) mg/dL Total Bilirubin 0.7 0.5 (0.2-1.3) mg/dL AST 55 H 28 (14-36) U/L ALT 38 H 25 (4-34) U/L Alkaline Phosphatase 116 75 (38-126) U/L Total Protein 7.8 5.9 L (6.3-8.2) g/dL Albumin 4.6 3.2 L (3.5-5.0) g/dL Assessment and Plan (1) Acute pancreatitis Current Visit: Yes Status: Acute Code(s): K85.90 - ACUTE PANCREATITIS WITHOUT NECROSIS OR INFECTION, UNSP SNOMED Code(s): 441274720 (2) Epigastric pain Current Visit: Yes Status: Acute Code(s): R10.13 - EPIGASTRIC PAIN SNOMED Code(s): 50455132 (3) Right upper quadrant abdominal pain Current Visit: Yes Status: Acute Code(s): R10.11 - RIGHT UPPER QUADRANT PAIN SNOMED Code(s): 200602217
--- NOTE | 2021-12-02 16:00 | US ---
EXAMINATION TYPE: US gallbladder DATE OF EXAM: 12/02/2021 COMPARISON: CT CLINICAL HISTORY: Right upper quadrant pain. Inpatient with Epigastric pain, N&V, diarrhea yesterday. EXAM MEASUREMENTS: Liver Length: 13.6 cm Gallbladder Wall: 0.3 cm CBD: 0.7 cm Right Kidney: 8.7 x 4.5 x 3.5 cm Pancreas: no masses seen Liver: no masses seen Gallbladder: multiple shadowing gallstones seen near neck and mid posterior wall Evidence for sonographic Yoo's sign: yes CBD: wnl, size is age appropriate for 8th decade Right Kidney: possible exophytic cyst seen superior to right kidney = 2.0 x 2.0 x 1.5cm. IMPRESSION: Are numerous gallstones. No dilated ducts.
[2021-12-03] MEDS: HEPARIN SODIUM,PORCINE/PF 5,000 UNIT/0.5 ML SYRINGE SQ SCH ×3 (00:11→15:11)
[2021-12-03] MEDS: HYDROmorphone 0.5 MG/0.5 ML SYRINGE IVP PRN ×5 (00:11→18:12)
[2021-12-03] MEDS: SODIUM CHLORIDE 0.9% 1,000 ML IV SCH ×3 (05:02→21:55)
[2021-12-03] MEDS: PANTOPRAZOLE 40 MG/10 ML VIAL IV SCH (08:23)
[2021-12-03] MEDS: ONDANSETRON 4 MG/2 ML VIAL IVP PRN (09:52)
[2021-12-03 10:12] LABS: Basophils # (A) 0.04 X 10*3/uL (0.00-0.10); Basophils % (A) 0.3 %; Eosinophils # (A) 0.02 X 10*3/uL (0.04-0.35); Eosinophils % (A) 0.1 %; HCT 33.9 % (37.2-46.3); HGB 10.7 g/dL (12.0-15.0); Immature Grans, Automated 0.3 %; Lymphocytes # (A) 0.83 X 10*3/uL (0.90-5.00); MCH 28.4 pg (27.0-32.0); MCHC 31.6 g/dL (32.0-37.0); MCV 89.9 fL (80.0-97.0); Mean Platelet Volume 11.9 fL (9.5-12.2); Monocytes # (A) 0.99 X 10*3/uL (0.20-1.00); Monocytes % (A) 7.1 %; NRBC Per 100 WBC 0 /100 WBCS (0.0-0.0); Neutrophils # (A) 11.93 X 10*3/uL (1.80-7.70); Neutrophils % (A) 86.2 %; Platelet Count 204 X 10*3/uL (140-440); RBC 3.77 X 10*6/uL (4.10-5.20); RDW 13.8 % (11.5-14.5); WBC 13.85 X 10*3/uL (4.50-10.00)
--- NOTE | 2021-12-03 10:14 | P.PN ---
<Yasmeen Arreguin - Last Filed: 12/03/21 10:07> Subjective Progress Note Date: 12/03/21 CHIEF COMPLAINT: Pancreatitis HISTORY OF PRESENT ILLNESS: Patient complains of right upper quadrant and epigastric abdominal pain. She does report nausea after pain meds. She was vomiting prior to admission after eating. Gallbladder ultrasound demonstrated numerous gallstones. No dilated ducts. Afebrile. Mildly tachycardic heart rate 111 today's labs are pending PHYSICAL EXAM: VITAL SIGNS: Reviewed. GENERAL: Well-developed in no acute distress. HEENT: No sclera icterus. Extraocular movements grossly intact. Moist buccal mucosa. Head is atraumatic, normocephalic. ABDOMEN: Soft. Nondistended. Right upper quadrant and epigastric pain with palpation NEUROLOGIC: Alert and oriented. Cranial nerves II through XII grossly intact. ASSESSMENT: 1. Acute gallstone pancreatitis PLAN: -Follow up on patient's blood work -keep NPO -Continue IV fluids -Further recommendations forthcoming per surgeon Physician [employer] note has been reviewed by physician. Signing provider agrees with the documented findings, assessment, and plan of care. Objective - Vital Signs Vital signs: Vital Signs Temp 98.7 F 12/03/21 04:30 Pulse 111 H 12/03/21 04:30 Resp 16 12/03/21 04:30 BP 150/74 12/03/21 04:30 Pulse Ox 99 12/03/21 04:30 Intake & Output 12/02/21 12/03/21 12/03/21 18:59 06:59 18:59 Intake Total 1560 Balance 1560 Intake: Intake, IV Titration 1560 Amount Sodium Chloride 0.9% 1, 1560 000 ml @ 130 mls/hr IV . Q7H42M [facility] Rx#:[id number] Other: Voiding Method Toilet Toilet Diaper # Voids 1 3 - Labs CBC & Chem 7: 12/02/21 06:57 12/02/21 06:57 Labs: Abnormal Lab Results - Last 24 Hours (Table) 12/02/21 12/02/21 Range/Units 06:57 06:57 WBC 13.21 H (4.50-10.00) X 10*3/uL RBC 3.94 L (4.10-5.20) X 10*6/uL Hgb 11.4 L (12.0-15.0) g/dL Hct 34.4 L (37.2-46.3) % Hemoglobin A1c 6.2 H (0.0-6.0) % <Lewis Multani - Last Filed: 12/03/21 14:28> Subjective As above. Patient with gallstone pancreatitis. Symptoms improving at this time. We have tentatively scheduled her for laparoscopic, possible open cholecystectomy tomorrow. Would like to see the patient's pain improved by then. Recheck labs tomorrow morning. May have clear liquids at this time. Risks of bleeding, infection, bile leak, bile duct injury, retained common bile duct stone, trocar injury, conversion to an open procedure, hernia, anesthesia related complications were reviewed. The patient understands and wishes to p roceed. Objective - Vital Signs Vital signs: Vital Signs Temp 98.7 F 12/03/21 04:30 Pulse 111 H 12/03/21 04:30 Resp 16 12/03/21 04:30 BP 150/74 12/03/21 04:30 Pulse Ox 99 12/03/21 04:30 Intake & Output 12/02/21 12/03/21 12/03/21 18:59 06:59 18:59 Intake Total 1560 Balance 1560 Intake: Intake, IV Titration 1560 Amount Sodium Chloride 0.9% 1, 1560 000 ml @ 130 mls/hr IV . Q7H42M [facility] Rx#:[id number] Other: Voiding Method Toilet Toilet Diaper # Voids 1 3 - Labs CBC & Chem 7: 12/03/21 06:21 12/03/21 06:21 Labs: Abnormal Lab Results - Last 24 Hours (Table) 12/03/21 12/03/21 Range/Units 06:21 06:21 WBC 13.85 H (4.50-10.00) X 10*3/uL RBC 3.77 L (4.10-5.20) X 10*6/uL Hgb 10.7 L (12.0-15.0) g/dL Hct 33.9 L (37.2-46.3) % MCHC 31.6 L (32.0-37.0) g/dL Neutrophils # 11.93 H (1.80-7.70) X 10*3/uL Lymphocytes # 0.83 L (0.90-5.00) X 10*3/uL Eosinophils # 0.02 L (0.04-0.35) X 10*3/uL Glucose 113 H (70-110) mg/dL Calcium 7.2 L (8.7-10.3) mg/dL Total Protein 5.3 L (6.2-8.2) g/dL Albumin 3.4 L (3.8-4.9) g/dL Lipase 271 H (14-63) U/L
[2021-12-03 10:24] LABS: BUN/Creat Ratio 15.24 Ratio (12.00-20.00)
[2021-12-03 10:25] LABS: African American GFR (CKD) 91.4 (60.0-200.0); Albumin 3.4 g/dL (3.8-4.9); Albumin/Globulin Ratio 1.72 (1.60-3.17); Anion Gap 10.7 mmol/L (10.00-18.00); Calcium 7.2 mg/dL (8.7-10.3); Carbon Dioxide 23.3 mmol/L (20.0-27.5); Non-African American GFR(CKD) 78.8 (60.0-200.0); Potassium 3.5 mmol/L (3.5-5.5); Total Bilirubin 0.4 mg/dL (0.30-1.20); Total Protein 5.3 g/dL (6.2-8.2)
--- NOTE | 2021-12-03 15:28 | P.PN ---
<Noah Guzman - Last Filed: 12/03/21 15:00> Subjective Progress Note Date: 12/03/21 Hospital course: Patient is a very pleasant 81-year-old female with a past medical history of h ypertension. She presented to the emergency department on 12/01/21 with a chief complaint of abdominal pain. Patient was found to have leukocytosis with WBC count of 18.0, acute kidney injury with BUN 23, creatinine 1.22 and GFR 42 baseline creatinine 0.7, elevated AST of 55 and elevated ALT of 38, troponin 0.014, an elevated amylase of 3067 with lipase of 12,416. Urinalysis was negative for infection and Covid PCR negative. EKG revealed sinus rhythm at 74 bpm with no noted T-wave or ST abnormalities. CT abdomen and pelvis revealing right-sided retroperitoneal edema with fluid in the anterior pararenal space and adjacent to the duodenum, could relate to some duodenitis, no significant edema noted of the pancreatic head and no pancreatic mass reported, pancreatitis is not excluded. Gallbladder ultrasound revealed numerous gallstones with no dilated ducts reported. Patient was admitted under our services with consultation to general surgery. Physical exam: Vital signs reviewed and stable. General: Nontoxic, no distress and appears stated age. Derm: Skin warm and dry, normal coloration for ethnicity. Head: Atraumatic, normocephalic and symmetric. Eyes: EOMs intact, no lid lag, and anicteric sclera Mouth: no lip lesions, mucus membranes moist Cardiovascular: regular rate and rhythm with normal S1S2, no murmur, positive posterior tibial pulses bilaterally, and cap refill < 2 seconds. Lungs: Respirations even, regular, and unlabored on room air. Lungs CTA bilaterally, no rhonchi, no rales, no wheezing, and no accessory muscle usage. Abdominal: soft, nontender to palpation, no guarding, no appreciable organomegaly Ext: ROM intact. No gross muscle atrophy, no edema, no contractures Neuro: Speech clear, face symmetrical and CN II-XII grossly intact with no noted focal neuro deficits Psych: Alert and oriented to person, place, time, and situation. Appropriate and pleasant affect. Assessment and Plan of Care: Acute pancreatitis Cholelithiasis, ultrasound revealing numerous gallstones Epigastric pain -NPO -Continue aggressive fluid hydration with IV fluids -Triglyceride level - CT abdomen and pelvis revealing right-sided retroperitoneal edema with fluid in the anterior pararenal space and adjacent to the duodenum, could relate to some duodenitis, no significant edema noted of the pancreatic head and no pancreatic mass reported, pancreatitis is not excluded. -Gallbladder ultrasound revealed numerous gallstones with no dilated ducts reported -Symptomatic care and pain management, Zofran as needed for nausea Dilaudid as needed for pain -GI prophylaxis with Protonix Incidental finding on imaging Adrenal mass -CTA revealing low-density oval-shaped 1.7 cm right adrenal mass suggestive of benign disease. -Recommend follow-up for repeat testing/monitoring with PCP. Hypertension Lisinopril/hydrochlorothiazide held at this time. Order placed for lisinopril [address] Monitor vital signs CODE STATUS: Full code DVT prophylaxis: Heparin Discussed with: Patient and RN Anticipated discharge date: Clinical course to determine Anticipated discharge place: Home A total of 40 minutes was spent on the care of this complex patient more than 50% of the time was spent in counseling and care coordination. Objective - Vital Signs Vital signs: Vital Signs Temp 98.7 F 12/03/21 04:30 Pulse 111 H 12/03/21 04:30 Resp 16 12/03/21 04:30 BP 150/74 12/03/21 04:30 Pulse Ox 99 12/03/21 04:30 Intake & Output 12/02/21 12/03/21 12/03/21 18:59 06:59 18:59 Intake Total 1560 Balance 1560 Intake: Intake, IV Titration 1560 Amount Sodium Chloride 0.9% 1, 1560 000 ml @ 130 mls/hr IV . Q7H42M [facility] Rx#:[id number] Other: Voiding Method Toilet Toilet Diaper # Voids 1 3 - Labs CBC & Chem 7: 12/03/21 06:21 12/03/21 06:21 Labs: Abnormal Lab Results - Last 24 Hours (Table) 12/02/21 12/02/21 Range/Units 06:57 06:57 WBC 13.21 H (4.50-10.00) X 10*3/uL RBC 3.94 L (4.10-5.20) X 10*6/uL Hgb 11.4 L (12.0-15.0) g/dL Hct 34.4 L (37.2-46.3) % Hemoglobin A1c 6.2 H (0.0-6.0) % <Thelma Hicks A - Last Filed: 12/03/21 18:16> Subjective Noah Guzman NP rendered care for this patient independently, reviewed the findings and plan as documented in the note above. I did not physically speak with or examine the patient on this date. Objective - Vital Signs Vital signs: Vital Signs Temp 96.5 F L 12/03/21 13:00 Pulse 72 12/03/21 13:00 Resp 18 12/03/21 13:00 BP 145/69 12/03/21 13:00 Pulse Ox 98 12/03/21 13:00 Intake & Output 12/02/21 12/03/21 12/03/21 18:59 06:59 18:59 Intake Total 1560 Balance 1560 Intake: Intake, IV Titration 1560 Amount Sodium Chloride 0.9% 1, 1560 000 ml @ 130 mls/hr IV . Q7H42M [facility] Rx#:[id number] Other: Voiding Method Toilet Toilet Diaper # Voids 1 3 3 - Labs CBC & Chem 7: 12/03/21 06:21 12/03/21 06:21 Labs: Abnormal Lab Results - Last 24 Hours (Table) 12/03/21 12/03/21 Range/Units 06:21 06:21 WBC 13.85 H (4.50-10.00) X 10*3/uL RBC 3.77 L (4.10-5.20) X 10*6/uL Hgb 10.7 L (12.0-15.0) g/dL Hct 33.9 L (37.2-46.3) % MCHC 31.6 L (32.0-37.0) g/dL Neutrophils # 11.93 H (1.80-7.70) X 10*3/uL Lymphocytes # 0.83 L (0.90-5.00) X 10*3/uL Eosinophils # 0.02 L (0.04-0.35) X 10*3/uL Glucose 113 H (70-110) mg/dL Calcium 7.2 L (8.7-10.3) mg/dL Total Protein 5.3 L (6.2-8.2) g/dL Albumin 3.4 L (3.8-4.9) g/dL Lipase 271 H (14-63) U/L
[2021-12-03] MEDS: lisinopriL 20 MG TAB PO SCH (17:32)
[2021-12-03] MEDS: HYDROmorphone 1 MG/ML 1 ML SYRINGE IVP PRN (21:22)
[2021-12-04] MEDS: SODIUM CHLORIDE 0.9% 1,000 ML IV SCH ×3 (00:26→16:08)
[2021-12-04] MEDS: HYDROmorphone 1 MG/ML 1 ML SYRINGE IVP PRN ×6 (00:27→23:41)
[2021-12-04] MEDS: HEPARIN SODIUM,PORCINE/PF 5,000 UNIT/0.5 ML SYRINGE SQ SCH ×3 (00:29→16:08)
[2021-12-04 06:42] LABS: HCT 33.5 % (34.0-46.0); MCH 29.9 pg (25.0-35.0); MCHC 33.4 g/dL (31.0-37.0); MCV 89.7 fL (80.0-100.0); Mean Platelet Volume 8.7; Platelet Count 180 k/uL (150-450); RBC 3.74 m/uL (3.80-5.40); RDW 13.4 % (11.5-15.5); WBC 13.9 k/uL (3.8-10.6)
[2021-12-04 06:48] LABS: ALT 19 U/L (4-34); AST 28 U/L (14-36); African American GFR (CKD) 87 (>60 ml/min/1.73 sqM); Albumin 3.1 g/dL (3.5-5.0); Albumin/Globulin Ratio 1.1; Alkaline Phosphatase 79 U/L (38-126); Anion Gap 5 mmol/L; Blood Urea Nitrogen 11 mg/dL (7-17); Calcium 7.6 mg/dL (8.4-10.2); Carbon Dioxide 24 mmol/L (22-30); Chloride 106 mmol/L (98-107); Globulin 2.8 g/dL; Glucose 118 mg/dL (74-99); Non-African American GFR(CKD) 76 (>60 ml/min/1.73 sqM); Potassium 3.2 mmol/L (3.5-5.1); Sodium 135 mmol/L (137-145); Total Bilirubin 0.8 mg/dL (0.2-1.3); Total Protein 5.9 g/dL (6.3-8.2)
[2021-12-04 06:55] LABS: HGB 11.2 gm/dL (11.4-16.0)
[2021-12-04] MEDS ORDERED: POTASSIUM CHLORIDE ER 20 MEQ TAB.ER PO STA (08:38)
[2021-12-04] MEDS: ONDANSETRON 4 MG/2 ML VIAL IVP PRN ×2 (08:58→18:02)
[2021-12-04] MEDS: lisinopriL 20 MG TAB PO SCH (08:59)
[2021-12-04] MEDS ORDERED: IV FLUID CONTINUATION 400 ML IV ONE (10:21)
--- NOTE | 2021-12-04 11:28 | P.PN ---
Progress Note - Text Progress Note Date: 12/04/21 Patient feels better today. Pain 3 out of 10. Patient is agreeable to proceed with laparoscopic cholecystectomy at this time. Patient and I with the nurse present along with her discussed her CODE STATUS wishes. Patient is not sure how order for DO NOT RESUSCITATE was initially placed. She says that she does wish to be resuscitated including chest compressions and intubation if necessary. Will discontinue the DO NOT RESUSCITATE for now. Will proceed with laparoscopic cholecystectomy, possible open cholecystectomy at this time.
[2021-12-04] MEDS ORDERED: SUCCINYLCHOLINE CHLORIDE 100 MG/5 ML SYR IV ONE (11:45)
[2021-12-04] MEDS ORDERED: NEOSTIGMINE 1 MG/ML 10 ML VIAL ONE (11:45)
[2021-12-04] MEDS ORDERED: fentaNYL (PF) 50 MCG/ML 2 ML AMP ONE (11:45)
[2021-12-04] MEDS ORDERED: PHENYLEPHRINE-0.9% NACL SYG 1,000 MCG/10 ML SYRINGE ONE (11:45)
[2021-12-04] MEDS ORDERED: PROPOFOL 10 MG/ML 20 ML VIAL IV ONE (11:45)
[2021-12-04] MEDS ORDERED: GLYCOPYRROLATE 0.2 MG/ML 2 ML VIAL ONE (11:45)
[2021-12-04] MEDS ORDERED: LIDOCAINE 1% INJ 10MG/ML (20 ML MDV) ONE (11:45)
[2021-12-04] MEDS ORDERED: ROCURONIUM 10 MG/ML (5 ML VIAL) IV ONE (11:45)
[2021-12-04] MEDS ORDERED: HEPARIN SODIUM,PORCINE 5,000 UNIT/ML 1 ML VIAL SQ ONE (11:49)
[2021-12-04] MEDS ORDERED: LACTATED RINGERS 1,000 ML IV ONE (11:50)
[2021-12-04] MEDS ORDERED: BUPIVACAIN-EPI 0.25%-1:200,000 30 ML VIAL SQ ONE ×2 (12:13)
[2021-12-04] MEDS ORDERED: ACETAMINOPHEN TAB 325 MG TAB PO PRN (12:51)
[2021-12-04] MEDS ORDERED: IBUPROFEN 600 MG TAB PO PRN (12:51)
[2021-12-04] MEDS ORDERED: HYDROcodone/APAP 5-325MG 1 EACH TAB PO PRN (12:51)
--- NOTE | 2021-12-04 12:52 | P.OP ---
Date of Procedure: 12/04/21 Procedure(s) Performed: PREOPERATIVE DIAGNOSIS: Gallstone pancreatitis POSTOPERATIVE DIAGNOSIS: Same PROCEDURE: Laparoscopic cholecystectomy SURGEON: Rangel EBL: Minimal see anesthesia record ANESTHESIA: Gen. COMPLICATIONS: None OPERATIVE PROCEDURE: The patient was brought and placed on the operating room [facility] in the supine position. The patient was placed under general anesthesia at that time. The abdomen was prepped and draped in the usual sterile fashion. A small vertical infraumbilical incision was made. The fascia was grasped with the Shantanu forceps. The fascia was retracted anteriorly. The Veress needle was advanced into the peritoneal cavity. The saline drop test was normal. Insufflation took place up to 15 mmHg. A 5 mm optical trocar was advanced and the peritoneal cavity. 2 additional 5 mm trochars were placed in the right upper quadrant under direct visualization. A 12 mm trocar was advanced into the epigastric incision site. The gallbladder was retracted superiorly and laterally. The peritoneum overlying the infundibulum was bluntly dissected. The patient's cystic duct was visualized. The junction between the cystic duct common and hepatic duct was identified. The critical view of safety was achieved after blunt dissection. The cystic duct was then divided after placement of 3 12 mm clips on the patient's side and one on the specimen side. The cystic artery was identified and clipped as well. A small vessel was seen along the gallbladder fossa and clipped as well. The gallbladder was then removed from the liver bed using electrocautery. The gallbladder was then removed from the epigastric trocar site with an Endo Catch bag. The gallbladder fossa was irrigated with saline. There was no evidence of any bleeding or biliary drainage seen. The fascia at the 12 millimeter site was closed using a Christoph-Veronika 0 Vicryl stitch. The trochars were then removed. The skin at all 4 sites was closed using a 4-0 Monocryl stitch. Skin glue was utilized on the incision sites. At the end of this procedure the sponge and needle counts were correct. DISPOSITION: Stable to the recovery room
--- NOTE | 2021-12-04 13:10 | P.PN ---
<Noah Guzman - Last Filed: 12/04/21 13:03> Subjective Progress Note Date: 12/04/21 Hospital course: Patient is a very pleasant 81-year-old female with a past medical history of h ypertension. She presented to the emergency department on 12/01/21 with a chief complaint of abdominal pain. Patient was found to have leukocytosis with WBC count of 18.0, acute kidney injury with BUN 23, creatinine 1.22 and GFR 42 baseline creatinine 0.7, elevated AST of 55 and elevated ALT of 38, troponin 0.014, an elevated amylase of 3067 with lipase of 12,416. Urinalysis was negative for infection and Covid PCR negative. EKG revealed sinus rhythm at 74 bpm with no noted T-wave or ST abnormalities. CT abdomen and pelvis revealing right-sided retroperitoneal edema with fluid in the anterior pararenal space and adjacent to the duodenum, could relate to some duodenitis, no significant edema noted of the pancreatic head and no pancreatic mass reported, pancreatitis is not excluded. Gallbladder ultrasound revealed numerous gallstones with no dilated ducts reported. Patient was admitted under our services with consultation to general surgery. Physical exam: Patient seen and fully evaluated at the bedside this morning. She continues to have epigastric and bilateral upper quadrant discomfort. Morning labs reviewed and stable with the exception of mild hypokalemia with potassium, replaced. Patient scheduled to undergo laparoscopic cholecystectomy with later this afternoon. Patient denies any episodes of vomiting, dizzines s/lightheadedness, chest pain, palpitations, or shortness of breath. Vital signs reviewed and stable. From a medical perspective, patient may proceed to surgery without further need of testing at this time. METS score greater than 4. Vital signs reviewed and stable. General: Nontoxic, no distress and appears stated age. Derm: Skin warm and dry, normal coloration for ethnicity. Head: Atraumatic, normocephalic and symmetric. Eyes: EOMs intact, no lid lag, and anicteric sclera Mouth: no lip lesions, mucus membranes moist Cardiovascular: regular rate and rhythm with normal S1S2, no murmur, positive posterior tibial pulses bilaterally, and cap refill < 2 seconds. Lungs: Respirations even, regular, and unlabored on room air. Lungs CTA bilaterally, no rhonchi, no rales, no wheezing, and no accessory muscle usage. Abdominal: soft, nontender to palpation, no guarding, no appreciable o rganomegaly Ext: ROM intact. No gross muscle atrophy, no edema, no contractures Neuro: Speech clear, face symmetrical and CN II-XII grossly intact with no noted focal neuro deficits Psych: Alert and oriented to person, place, time, and situation. Appropriate and pleasant affect. Assessment and Plan of Care: Acute pancreatitis Cholelithiasis, ultrasound revealing numerous gallstones Epigastric pain -NPO -Continue aggressive fluid hydration with IV fluids -Triglyceride level -CT abdomen and pelvis revealing right-sided retroperitoneal edema with fluid in the anterior pararenal space and adjacent to the duodenum, could relate to some duodenitis, no significant edema noted of the pancreatic head and no pancreatic mass reported, pancreatitis is not excluded. -Gallbladder ultrasound revealed numerous gallstones with no dilated ducts reported -Symptomatic care and pain management, Zofran as needed for nausea Dilaudid as needed for pain -GI prophylaxis with Protonix -Gen. surgery following, planning to take patient down for laparoscopic cholecystectomy later today. Hypokalemia -Replaced, continue to monitor with repeat a.m. labs Incidental finding on imaging Adrenal mass -CTA revealing low-density oval-shaped 1.7 cm right adrenal mass suggestive of benign disease. -Recommend follow-up for repeat testing/monitoring with PCP. Hypertension Lisinopril/hydrochlorothiazide held at this time. Order placed for lisinopril [address] Monitor vital signs CODE STATUS: Full code DVT prophylaxis: Heparin Discussed with: Patient and RN Anticipated discharge date: Clinical course to determine Anticipated discharge place: Home A total of 40 minutes was spent on the care of this complex patient more than 50% of the time was spent in counseling and care coordination. Objective - Vital Signs Vital signs: Vital Signs Temp 98.3 F 12/04/21 07:30 Pulse 125 H 12/04/21 07:30 Resp 18 12/04/21 07:30 BP 149/69 12/04/21 07:30 Pulse Ox 95 12/04/21 07:30 Intake & Output 12/03/21 12/04/21 12/04/21 18:59 06:59 18:59 Other: Voiding Method Toilet Toilet Diaper Diaper # Voids 3 2 - Labs CBC & Chem 7: 12/04/21 05:51 12/04/21 05:51 Labs: Abnormal Lab Results - Last 24 Hours (Table) 12/03/21 12/03/21 12/04/21 Range/Units 06:21 06:21 05:51 WBC 13.85 H (4.50-10.00) X 10*3/uL RBC 3.77 L (4.10-5.20) X 10*6/uL Hgb 10.7 L (12.0-15.0) g/dL Hct 33.9 L (37.2-46.3) % MCHC 31.6 L (32.0-37.0) g/dL Neutrophils # 11.93 H (1.80-7.70) X 10*3/uL Lymphocytes # 0.83 L (0.90-5.00) X 10*3/uL Eosinophils # 0.02 L (0.04-0.35) X 10*3/uL Sodium 135 L (137-145) mmol/L Potassium 3.2 L (3.5-5.1) mmol/L Glucose 113 H 118 H (70-110) mg/dL Calcium 7.2 L 7.6 L (8.7-10.3) mg/dL Total Protein 5.3 L 5.9 L (6.2-8.2) g/dL Albumin 3.4 L 3.1 L (3.8-4.9) g/dL Lipase 271 H (14-63) U/L 12/04/21 Range/Units 05:51 WBC 13.9 H (4.50-10.00) X 10*3/uL RBC 3.74 L (4.10-5.20) X 10*6/uL Hgb 11.2 L D (12.0-15.0) g/dL Hct 33.5 L (37.2-46.3) % MCHC (32.0-37.0) g/dL Neutrophils # (1.80-7.70) X 10*3/uL Lymphocytes # (0.90-5.00) X 10*3/uL Eosinophils # (0.04-0.35) X 10*3/uL Sodium (137-145) mmol/L Potassium (3.5-5.1) mmol/L Glucose (70-110) mg/dL Calcium (8.7-10.3) mg/dL Total Protein (6.2-8.2) g/dL Albumin (3.8-4.9) g/dL Lipase (14-63) U/L <Blossom Bob - Last Filed: 12/05/21 09:27> Subjective agree with note and plan Objective - Vital Signs Vital signs: Vital Signs Temp 98.4 F 12/05/21 03:45 Pulse 104 H 12/05/21 03:45 Resp 18 12/05/21 03:45 BP 171/73 12/05/21 03:45 Pulse Ox 96 12/05/21 03:45 Intake & Output 12/04/21 12/05/21 12/05/21 18:59 06:59 18:59 Intake Total 2260 Output Total 5 Balance 2255 Weight 63.503 kg Intake: IV 650 Intake, IV Titration 1610 Amount Sodium Chloride 0.9% 1, 1560 000 ml @ 130 mls/hr IV . Q7H42M [facility] Rx#:[id number] ceFAZolin 2 gm In Sodium 50 Chloride 0.9% 50 ml @ 100 mls/hr IVPB ONCE ONE Rx# :[id number] Output: Estimated Blood Loss 5 Other: Voiding Method Toilet # Voids 1 - Labs CBC & Chem 7: 12/04/21 05:51 12/04/21 18:36 Labs: Abnormal Lab Results - Last 24 Hours (Table) 12/04/21 12/04/21 Range/Units 05:51 18:36 Sodium 136 L (137-145) mmol/L Glucose 116 H (74-99) mg/dL Calcium 7.6 L (8.4-10.2) mg/dL HDL Cholesterol 60.30 H (40.00-60.00) mg/dL
[2021-12-04] MEDS ORDERED: ONDANSETRON 4 MG/2 ML VIAL IVP ONE (13:25)
[2021-12-04] MEDS ORDERED: HYDROmorphone 1 MG/ML 1 ML SYRINGE IVP ONE (13:27)
[2021-12-04] MEDS: PANTOPRAZOLE 40 MG/10 ML VIAL IV SCH (15:00)
[2021-12-04] MEDS: HYDROmorphone 0.5 MG/0.5 ML SYRINGE IVP PRN (16:08)
[2021-12-04 16:34] LABS: Chol/HDL Ratio 2.29 Ratio; LDL Cholesterol,Calculated 56.5 mg/dL (0.0-131.0)
[2021-12-04] MEDS ORDERED: HYDROmorphone 0.5 MG/0.5 ML SYRINGE IVP STA (17:55)
--- NOTE | 2021-12-04 18:29 | XR ---
EXAMINATION TYPE: XR chest 1V portable DATE OF EXAM: 12/04/2021 COMPARISON: NONE HISTORY: Short of breath TECHNIQUE: Single view FINDINGS: There is some mild interstitial infiltrates in the mid and lower lung martinez. No heart fail ure seen. Heart size is fairly normal. There is slight blunting of the left costophrenic angle. IMPRESSION: There are interstitial infiltrates in the lower lobes which are mostly new compared to ol d exam. No obvious heart failure.
[2021-12-04] MEDS ORDERED: DILTIAZEM 125 MG in SODIUM CHLORIDE 0.9% 100 ML IV SCH (19:00)
[2021-12-04] MEDS ORDERED: DILTIAZEM DRIP BOLUS FROM BAG 1 MG SOLN IV ONE (19:00)
[2021-12-04 19:11] LABS: African American GFR (CKD) 87 (>60 ml/min/1.73 sqM); Anion Gap 5 mmol/L; Blood Urea Nitrogen 12 mg/dL (7-17); Calcium 7.6 mg/dL (8.4-10.2); Carbon Dioxide 25 mmol/L (22-30); Chloride 106 mmol/L (98-107); Glucose 116 mg/dL (74-99); Magnesium 1.8 mg/dL (1.6-2.3); Non-African American GFR(CKD) 76 (>60 ml/min/1.73 sqM); Potassium 3.5 mmol/L (3.5-5.1); Sodium 136 mmol/L (137-145)
--- NOTE | 2021-12-04 19:37 | P.PN ---
Progress Note - Text Progress Note Date: 12/04/21 Called by nursing due to acute Hypertension post op. Patient noted to have HR 40 on vitals. EKG obtained with sinus arrhythmia. Placed on Tele found to be in A fib at 150s. Patient seen and feels great. Pain the same as prior to OR. No chest pain, dizziness or shortness of breath. General: non toxic, no distress, appears at stated age Cardiovascular: S1S2 irreg, no murmur, positive posterior tibial pulse bilateral, Lungs: CTA bilateral, no rhonchi, no rales , no accessory muscle use Abdominal: soft, +tender to palpation RUQ, LUQ, no guarding, no appreciable organomegaly Psych: Alert, oriented, appropriate affect A fib with RVR - transfer to [address] [place] [address] gtt - D/W Dr. Multani and we agree no heparin as patient is fresh post-op - echo in AM - if does not convert then cardio consult in AM - D/W ACRN - bmp and mg ordered and pending. A total of 35 minutes of critical care time was spend on this complex patient
[2021-12-04] MEDS: MAGNESIUM SULFATE-D5W PMX 1 GM in DEXTROSE/WATER 1 100ML.BAG IVPB SCH ×2 (20:26→22:34)
[2021-12-05] MEDS: SODIUM CHLORIDE 0.9% 1,000 ML IV SCH ×2 (01:38→10:03)
[2021-12-05] MEDS: HEPARIN SODIUM,PORCINE/PF 5,000 UNIT/0.5 ML SYRINGE SQ SCH ×2 (01:38→10:03)
[2021-12-05] MEDS: HYDROmorphone 1 MG/ML 1 ML SYRINGE IVP PRN ×3 (04:04→20:35)
--- NOTE | 2021-12-05 07:45 | P.CRDCN ---
History of Present Illness Consult date: 12/05/21 History of present illness: The patient presented on December 01 with acute abdominal discomfort and was diagnosed with acute pancreatitis and gallstones. She underwent surgery by Dr. Multani on December 04. Yesterday she had an episode of atrial fibrillation and she is back in sinus mechanism at this time. The patient denies any prior history of cardiac disease, she is reasonably active physically without any chest discomfort. She denies any dyspnea on exertion but she has occasional palpitations but no documented atrial fibrillation. She denies any PND, orthopnea or peripheral edema. She has no recent cardiac workup. She has a history of hypertension, she is a nonsmoker nondiabetic. She's feeling better this morning, continues to have mild abdominal discomfort but no palpitations and no chest discomfort. Her initial EKG showed sinus mechanism with no acute ST segment changes. She is on lisinopril at home and has been maintained on IV Cardizem since her episode of atrial fibrillation. Respiratory: No history of asthma, bronchitis or recent cough. GI: Patient has abdominal discomfort on presentation, denies any GI bleeding. system: No history of hematuria or dysuria. Nervous System: No stroke or seizure. Head: Normocephalic. Eyes: Sclerae nonicteric. Neck: Good carotid upstroke, no bruit, no jugular venous distention. Lungs: Clear to auscultation. Heart: Regular rate and rhythm, S1-S2, no S3, no murmur or rub. Abdomen: Soft mild tenderness, no rebound, positive bowel sounds no organomegaly. Extremities: No edema, intact distal pulses. Impression: 1. Acute pancreatitis, status post cholecystectomy 2. [ Paroxysmal atrial fibrillation, back in sinus mechanism] 3. [ History of hypertension] 4. [ Right adrenal mass, probably benign] Plan: 1. [ Stop IV Cardizem] 2. [ Start on oral beta ale] 3. [ Obtain an echocardiogram with Doppler] 4. [ Her CHADS2-VASC2 score is 3, we will hold on anticoagulation for now unless she has recurrent episodes 5. [ Depending on the results of the testing further recommendations will be made. 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 History of Any Multi-Drug Resistant Organisms: None Reported Past Surgical History: No Surgical Hx Reported Past Psychological History: Anxiety Smoking Status: Never smoker Past Alcohol Use History: None Reported Past Drug Use History: None Reported Medications and Allergies Home Medications Medication Instructions Recorded Confirmed Type ALPRAZolam [Xanax] 0.25 mg PO BID PRN 06/19/16 12/01/21 History Lisinopril-Hctz 20-12.5 mg 1 tab PO HS 04/25/21 12/01/21 History [Zestoretic 20-12.5] Allergies Allergy/AdvReac Type Severity Reaction Status Date / Time chocolate flavor Allergy Rash/Hives Verified 12/01/21 21:21 Physical Exam Vitals: Vital Signs Temp Pulse Pulse Resp BP BP Pulse Ox 12/05/21 03:45 98.4 F 104 H 18 171/73 96 12/05/21 00:00 98.4 F 101 H 20 164/78 94 L 12/04/21 20:00 98.2 F 109 H 20 168/79 95 12/04/21 19:48 16 12/04/21 18:07 64 201/74 91 L 12/04/21 17:00 45 L 211/104 92 L 12/04/21 15:48 70 199/67 92 L 12/04/21 15:12 69 165/82 92 L 12/04/21 14:57 72 177/70 90 L 12/04/21 14:24 64 16 193/69 91 L 12/04/21 14:01 85 16 187/76 96 12/04/21 13:49 84 16 177/71 96 12/04/21 13:38 73 16 177/73 99 12/04/21 13:23 77 17 189/73 98 12/04/21 13:08 81 17 152/81 100 12/04/21 12:53 86 15 154/74 98 12/04/21 10:01 98.7 F 77 17 168/73 95 Intake and Output 12/04/21 12/05/21 12/05/21 22:59 06:59 14:59 Intake Total 1610 Balance 1610 Intake: Intake, IV Titration 1610 Amount Sodium Chloride 0.9% 1, 1560 000 ml @ 130 mls/hr IV . Q7H42M [facility] Rx#:[id number] ceFAZolin 2 gm In Sodium 50 Chloride 0.9% 50 ml @ 100 mls/hr IVPB ONCE ONE Rx# :[id number] Other: Voiding Method Toilet Toilet # Voids 1 Results 12/04/21 05:51 12/04/21 18:36 Lipids 12/04/21 Range/Units 05:51 Triglycerides 106.00 (0.00-149.00) mg/dL Cholesterol 138.00 (0.00-200.00) mg/dL HDL Cholesterol 60.30 H (40.00-60.00) mg/dL Cholesterol/HDL Ratio 2.29 Ratio Comprehensive Metabolic Panel 12/04/21 Range/Units 18:36 Sodium 136 L (137-145) mmol/L Potassium 3.5 (3.5-5.1) mmol/L Chloride 106 (98-107) mmol/L Carbon Dioxide 25 (22-30) mmol/L BUN 12 (7-17) mg/dL Creatinine 0.75 (0.52-1.04) mg/dL Glucose 116 H (74-99) mg/dL Calcium 7.6 L (8.4-10.2) mg/dL Current Medications Generic Name Dose Route Start Last Admin Trade Name Freq PRN Reason Stop Dose Admin Acetaminophen 650 mg 12/04/21 12:51 Acetaminophen Tab 325 Mg Tab PO Q4HR PRN Fever and/ or Pain Hydrocodone Bitart/Acetaminophen 1 each 12/04/21 12:51 Hydrocodone/Apap 5-325mg 1 Each Tab PO Q4HR PRN Pain Heparin Sodium (Porcine) 5,000 unit 12/02/21 08:00 12/05/21 01:38 Heparin Sodium,Porcine/Pf 5,000 Unit/0.5 Ml Syringe SQ 5,000 unit Q8HR [facility] Administration Hydromorphone HCl 1 mg 12/01/21 20:51 12/04/21 08:57 Hydromorphone 1 Mg/Ml 1 Ml Syringe IVP 1 mg Q3HR PRN Administration Severe Pain Hydromorphone HCl 0.5 mg 12/04/21 20:22 12/05/21 04:04 Hydromorphone 1 Mg/Ml 1 Ml Syringe IVP 0.5 mg Q3HR PRN Administration Moderate Pain Sodium Chloride 1,000 mls @ 130 mls/hr 12/01/21 21:00 12/05/21 01:38 Saline 0.9% IV 130 mls/hr .Q7H42M [facility] Administration Diltiazem HCl 125 mg/ Sodium 125 mls @ 5 mls/hr 12/04/21 19:00 12/04/21 20:24 Chloride IV 5 ml/hr .Q24H [facility] 5 mls/hr Administration Protocol Per Protocol Ibuprofen 600 mg 12/04/21 12:51 Ibuprofen 600 Mg Tab PO Q6HR PRN Pain Lisinopril 20 mg 12/03/21 15:30 12/04/21 08:59 Lisinopril 20 Mg Tab PO 20 mg DAILY [facility] Administration Naloxone HCl 0.2 mg 12/01/21 20:51 Naloxone 0.4 Mg/Ml 1 Ml Vial IV Q2M PRN Opioid Reversal Ondansetron HCl 4 mg 12/01/21 20:51 12/04/21 18:02 Ondansetron 4 Mg/2 Ml Vial IVP 4 mg Q8HR PRN Administration Nausea And Vomiting Pantoprazole Sodium 40 mg 12/02/21 09:00 12/04/21 15:00 Pantoprazole 40 Mg/10 Ml Vial IV Not Given DAILY [facility]O Intake and Output 12/04/21 12/05/21 12/05/21 22:59 06:59 14:59 Intake Total 1610 Balance 1610 Intake: Intake, IV Titration 1610 Amount Sodium Chloride 0.9% 1, 1560 000 ml @ 130 mls/hr IV . Q7H42M [facility] Rx#:[id number] ceFAZolin 2 gm In Sodium 50 Chloride 0.9% 50 ml @ 100 mls/hr IVPB ONCE ONE Rx# :[id number] Other: Voiding Method Toilet Toilet # Voids 1 12/04/21 05:51 12/04/21 18:36
[2021-12-05] MEDS: lisinopriL 20 MG TAB PO SCH (10:03)
[2021-12-05] MEDS: METOPROLOL TARTRATE 25 MG TAB PO SCH ×2 (10:03→20:35)
[2021-12-05] MEDS: hydroCHLOROthiazide 25 MG TAB PO SCH (10:03)
[2021-12-05] MEDS: PANTOPRAZOLE 40 MG/10 ML VIAL IV SCH (10:03)
--- NOTE | 2021-12-05 10:32 | P.PN ---
<Noah Guzman - Last Filed: 12/05/21 10:03> Subjective Progress Note Date: 12/05/21 Hospital course: Patient is a very pleasant 81-year-old female with a past medical history of h ypertension. She presented to the emergency department on 12/01/21 with a chief complaint of abdominal pain. Patient was found to have leukocytosis with WBC count of 18.0, acute kidney injury with BUN 23, creatinine 1.22 and GFR 42 baseline creatinine 0.7, elevated AST of 55 and elevated ALT of 38, troponin 0.014, an elevated amylase of 3067 with lipase of 12,416. Urinalysis was negative for infection and Covid PCR negative. EKG revealed sinus rhythm at 74 bpm with no noted T-wave or ST abnormalities. CT abdomen and pelvis revealing right-sided retroperitoneal edema with fluid in the anterior pararenal space and adjacent to the duodenum, could relate to some duodenitis, no significant edema noted of the pancreatic head and no pancreatic mass reported, pancreatitis is not excluded. Gallbladder ultrasound revealed numerous gallstones with no dilated ducts reported. Patient was admitted under our services with consultation to general surgery. Patient underwent laparoscopic cholecystectomy on 12/04/21. After surgery patient was found to have postoperative hypertension with an irregular heart rate and was found to be in atrial fibrillation with RVR. Patient was started on Cardizem drip and transferred to cardiac unit with consultation to cardiology. Patient converted back into normal sinus rhythm and was started on hydrochlorothiazide 25 mg daily and metoprolol 25 mg twice daily. Echocardiogram completed and awaiting results. Physical exam: Patient seen and fully evaluated at the bedside this morning. Patient reports feeling better today and continues to have some abdominal discomfort/bloating sensation, but states pain is much better than yesterday. She did have episode of postoperative hypertension along with new onset A. fib RVR last night. Patient was started on Cardizem infusion, had echocardiogram completed, and was evaluated by cardiology. Patient converted back to normal sinus rhythm, Cardizem infusion was discontinued, and patient started on hydrochlorothiazide and metoprolol. We are awaiting echocardiogram results. Vital signs reviewed and stable. General: Nontoxic, no distress and appears stated age. Derm: Skin warm and dry, normal coloration for ethnicity. Head: Atraumatic, normocephalic and symmetric. Eyes: EOMs intact, no lid lag, and anicteric sclera Mouth: no lip lesions, mucus membranes moist Cardiovascular: regular rate and rhythm with normal S1S2, no murmur, positive posterior tibial pulses bilaterally, and cap refill < 2 seconds. Lungs: Respirations even, regular, and unlabored on room air. Lungs CTA bilaterally, no rhonchi, no rales, no wheezing, and no accessory muscle usage. Abdominal: soft, nontender to palpation, no guarding, no appreciable organomegaly Ext: ROM intact. No gross muscle atrophy, no edema, no contractures Neuro: Speech clear, face symmetrical and CN II-XII grossly intact with no noted focal neuro deficits Psych: Alert and oriented to person, place, time, and situation. Appropriate and pleasant affect. Assessment and Plan of Care: Acute pancreatitis resulting from numerous gallstones Cholelithiasis, ultrasound revealing numerous gallstones Status post laparoscopic cholecystectomy on 12/04/21 -Low fat diet -Triglyceride level -CT abdomen and pelvis revealing right-sided retroperitoneal edema with fluid in the anterior pararenal space and adjacent to the duodenum, could relate to some duodenitis, no significant edema noted of the pancreatic head and no pancreatic mass reported, pancreatitis is not excluded. -Gallbladder ultrasound revealed numerous gallstones with no dilated ducts reported -Symptomatic care and pain management, Zofran as needed for nausea Dilaudid as needed for pain -GI prophylaxis with Protonix -Gen. surgery following, patient underwent laparoscopic cholecystectomy on 12/04/21 New-onset atrial fibrillation with RVR , converted back to normal sinus rhythm -Cardizem infusion discontinued, patient started on metoprolol 25 mg twice a day -Echocardiogram to be completed -Cardiology following, recommending to hold off on anticoagulation unless patient has recurrent episodes. -TSH 1.900. Hypokalemia -Replaced, continue to monitor with repeat a.m. labs Incidental finding on imaging Adrenal mass -CTA revealing low-density oval-shaped 1.7 cm right adrenal mass suggestive of benign disease. -Recommend follow-up for repeat testing/monitoring with PCP. Hypertension Lisinopril/hydrochlorothiazide held at this time. Order placed for lisinopril [address] Monitor vital signs CODE STATUS: Full code DVT prophylaxis: Heparin Discussed with: Patient and RN Anticipated discharge date: Possibly tomorrow morning, pending clinical course. Anticipated discharge place: Home A total of 40 minutes was spent on the care of this complex patient more than 50% of the time was spent in counseling and care coordination. Objective - Vital Signs Vital signs: Vital Signs Temp 98.4 F 12/05/21 03:45 Pulse 104 H 12/05/21 03:45 Resp 18 12/05/21 03:45 BP 171/73 12/05/21 03:45 Pulse Ox 96 12/05/21 03:45 Intake & Output 12/04/21 12/05/21 12/05/21 18:59 06:59 18:59 Intake Total 2260 Output Total 5 Balance 2255 Weight 63.503 kg Intake: IV 650 Intake, IV Titration 1610 Amount Sodium Chloride 0.9% 1, 1560 000 ml @ 130 mls/hr IV . Q7H42M [facility] Rx#:[id number] ceFAZolin 2 gm In Sodium 50 Chloride 0.9% 50 ml @ 100 mls/hr IVPB ONCE ONE Rx# :[id number] Output: Estimated Blood Loss 5 Other: Voiding Method Toilet # Voids 1 - Labs CBC & Chem 7: 12/04/21 05:51 12/04/21 18:36 Labs: Abnormal Lab Results - Last 24 Hours (Table) 12/04/21 12/04/21 Range/Units 05:51 18:36 Sodium 136 L (137-145) mmol/L Glucose 116 H (74-99) mg/dL Calcium 7.6 L (8.4-10.2) mg/dL HDL Cholesterol 60.30 H (40.00-60.00) mg/dL <Thelma Hicks - Last Filed: 12/05/21 14:55> Subjective Noah Guzman NP rendered care for this patient independently, reviewed the findings and plan as documented in the note above. I did not physically speak with or examine the patient on this date. Objective - Vital Signs Vital signs: Vital Signs Temp 98.2 F 12/05/21 12:26 Pulse 79 12/05/21 12:26 Resp 18 12/05/21 12:26 BP 134/72 12/05/21 12:26 Pulse Ox 95 12/05/21 12:26 Intake & Output 12/04/21 12/05/21 12/05/21 18:59 06:59 18:59 Intake Total 2260 Output Total 5 Balance 2255 Weight 63.503 kg Intake: IV 650 Intake, IV Titration 1610 Amount Sodium Chloride 0.9% 1, 1560 000 ml @ 130 mls/hr IV . Q7H42M [facility] Rx#:[id number] ceFAZolin 2 gm In Sodium 50 Chloride 0.9% 50 ml @ 100 mls/hr IVPB ONCE ONE Rx# :[id number] Output: Estimated Blood Loss 5 Other: Voiding Method Toilet Toilet # Voids 1 - Labs CBC & Chem 7: 12/04/21 05:51 12/04/21 18:36 Labs: Abnormal Lab Results - Last 24 Hours (Table) 12/04/21 12/04/21 Range/Units 05:51 18:36 Sodium 136 L (137-145) mmol/L Glucose 116 H (74-99) mg/dL Calcium 7.6 L (8.4-10.2) mg/dL HDL Cholesterol 60.30 H (40.00-60.00) mg/dL
--- NOTE | 2021-12-05 10:41 | ECHOF ---
Referral Reason:a fib MEASUREMENTS -------- HEIGHT: 152.4 cm WEIGHT: 63.5 kg BP: RVIDd: 2.7 cm (< 3.3) IVSd: 0.9 cm (0.6 - 1.1) LVIDd: 3.8 cm (3.9 - 5.3) LVPWd: 1.1 cm (0.6 - 1.1) IVSs: 1.3 cm LVIDs: 2.5 cm LVPWs: 1.6 cm LA Diam: 3.1 cm (2.7 - 3.8) LAESV Index (A-L): 29.10 ml/m Ao Diam: 2.2 cm (2.0 - 3.7) AV Cusp: 1.1 cm (1.5 - 2.6) LA Diam: 4.0 cm (2.7 - 3.8) MV EXCURSION: 15.271 mm (> 18.000) MV EF SLOPE: 113 mm/s (70 - 150) EPSS: 0.0 cm RAP: 5.00 mmHg RVSP: 32.56 mmHg FINDINGS -------- Atrial fibrillation. This was a technically adequate study. LV size, wall thickness and systolic function are normal, with an EF greater than 55%. The left shabbir tricular size is normal. The right ventricle is normal in size. LA is midly dilated 29-33ml/m2. The right atrial size is normal. The aortic valve is trileaflet, and appears structurally normal. No aortic stenosis or regurgitation. Mild mitral regurgitation is present. Mild tricuspid regurgitation present. Right ventricular systolic pressure is normal at < 35 mmHg. There is no pulmonic regurgitation present. Echo free space indicative of a pericardial fat pad. CONCLUSIONS -------- 1. LV size, wall thickness and systolic function are normal, with an EF greater than 55%. 2. The left ventricular size is normal. 3. The right ventricle is normal in size. 4. LA is midly dilated 29-33ml/m2. 5. The right atrial size is normal. 6. The aortic valve is trileaflet, and appears structurally normal. No aortic stenosis or regurgitati on. 7. Mild mitral regurgitation is present. 8. Mild tricuspid regurgitation present. 9. Echo free space indicative of a pericardial fat pad. GASTROENTEROLOGIST: Mahi Dewitt RDCS
[2021-12-05] MEDS: APIXABAN 5 MG TAB PO SCH (13:03)
--- NOTE | 2021-12-05 14:00 | P.PN ---
Subjective Progress Note Date: 12/05/21 CHIEF COMPLAINT: Gallstone Pancreatitis HISTORY OF PRESENT ILLNESS: Patient is status post laparoscopic cholecystectomy. Postop day #1. Her pain is controlled. Denies any nausea or vomiting. Denies any flatus. She tolerated clear liquid diet. Afebrile. She did go into atrial fibrillation with rapid ventricular response. She is being seen by cardiology. PHYSICAL EXAM: VITAL SIGNS: Reviewed. GENERAL: Well-developed in no acute distress. HEENT: No sclera icterus. Extraocular movements grossly intact. Moist buccal mucosa. Head is atraumatic, normocephalic. ABDOMEN: Mildly distended. Incision sites clean dry and intact NEUROLOGIC: Alert and oriented. Cranial nerves II through XII grossly intact. ASSESSMENT: 1. Acute gallstone pancreatitis status post laparoscopic cholecystectomy PLAN: -Okay to restart Eliquis tomorrow, 12/06/2021 from surgical standpoint -Advance diet to low-fat -Encourage patient to ambulate -Continue [facility] as needed for pain Physician Portal Administrator note has been reviewed by physician. Signing provider agrees with the documented findings, assessment, and plan of care. Objective - Vital Signs Vital signs: Vital Signs Temp 98.2 F 12/05/21 12:26 Pulse 79 12/05/21 12:26 Resp 18 12/05/21 12:26 BP 134/72 12/05/21 12:26 Pulse Ox 95 12/05/21 12:26 Intake & Output 12/04/21 12/05/21 12/05/21 18:59 06:59 18:59 Intake Total 2260 Output Total 5 Balance 2255 Weight 63.503 kg Intake: IV 650 Intake, IV Titration 1610 Amount Sodium Chloride 0.9% 1, 1560 000 ml @ 130 mls/hr IV . [id number] [facility] Rx#:[id number] ceFAZolin 2 gm In Sodium 50 Chloride 0.9% 50 ml @ 100 mls/hr IVPB ONCE ONE Rx# :[id number] Output: Estimated Blood Loss 5 Other: Voiding Method Toilet Toilet # Voids 1 - Labs CBC & Chem 7: 12/04/21 05:51 12/04/21 18:36 Labs: Abnormal Lab Results - Last 24 Hours (Table) 12/04/21 12/04/21 Range/Units 05:51 18:36 Sodium 136 L (137-145) mmol/L Glucose 116 H (74-99) mg/dL Calcium 7.6 L (8.4-10.2) mg/dL HDL Cholesterol 60.30 H (40.00-60.00) mg/dL
[2021-12-05] MEDS ORDERED: HEPARIN SODIUM,PORCINE/PF 5,000 UNIT/0.5 ML SYRINGE SQ SCH (21:00)
--- NOTE | 2021-12-06 08:18 | P.PN ---
Subjective Progress Note Date: 12/06/21 PROGRESS NOTE The patient is an 81-year-old female who presented with abdominal discomfort, was found to have acute pancreatitis and cholelithiasis, underwent surgery. She had atrial fibrillation post surgery. Her echocardiogram showed a preserved systolic function. She had recurrent atrial fibrillation on and off yesterday and she is back in atrial fibrillation this morning. She has prior palpitations are home and I would suspect that she has paroxysmal atrial fibrillation. She denies any chest discomfort or dyspnea. She has no PND or orthopnea. Her abdominal discomfort is better. She is tolerating by mouth intake. PHYSICAL EXAMINATION: Blood pressure [154/80] heart rate [117] LUNGS: [Clear to auscultation] HEART: [Irregular rate and rhythm, S1, S2. No S3. Systolic murmur at the base] ABDOMEN: [Soft, mild tenderness, no rebound, no organomegaly] EXTREMETIES: [No edema] LAB: Telemetry shows paroxysmal atrial fibrillation IMPRESSION: 1. [ Status post cholecystectomy with pancreatitis] 2. [ Paroxysmal atrial fibrillation] 3. [ History of hypertension] PLAN: Start anticoagulation today with Eliquis 5 mg twice a day. Increase the dose of the beta ale and add amiodarone 400 mg twice a day for one week then 200 mg twice a day to try to maintain sinus mechanism. Increase her level of activity, if she has no further symptoms then we'll continue present therapy and undergo further evaluation as an outpatient. Objective - Vital Signs Vital signs: Vital Signs Temp 98.9 F 12/06/21 07:28 Pulse 117 H 12/06/21 07:28 Resp 18 12/06/21 07:28 BP 154/82 12/06/21 07:28 Pulse Ox 96 12/06/21 07:28 Intake & Output 12/05/21 12/06/21 12/06/21 18:59 06:59 18:59 Intake Total 10 Balance 10 Intake: IV 10 Invasive Line 1 10 Other: Voiding Method Toilet Toilet # Voids 2 1 - Labs CBC & Chem 7: 12/04/21 05:51 12/04/21 18:36
[2021-12-06] MEDS: hydroCHLOROthiazide 25 MG TAB PO SCH (08:19)
[2021-12-06] MEDS: lisinopriL 20 MG TAB PO SCH (08:19)
[2021-12-06] MEDS: AMIODARONE 200 MG TAB PO SCH ×2 (08:19→19:37)
[2021-12-06] MEDS: APIXABAN 5 MG TAB PO SCH ×2 (08:19→19:37)
[2021-12-06] MEDS: PANTOPRAZOLE 40 MG/10 ML VIAL IV SCH (08:19)
[2021-12-06] MEDS: METOPROLOL TARTRATE 50 MG TAB PO SCH ×2 (08:19→19:37)
[2021-12-06 09:27] LABS: Calcium 7.6 mg/dL (8.4-10.2); Magnesium 1.9 mg/dL (1.6-2.3); Total Bilirubin 0.8 mg/dL (0.2-1.3); Total Protein 5.8 g/dL (6.3-8.2)
[2021-12-06 09:33] LABS: Potassium 2.7 mmol/L (3.5-5.1)
[2021-12-06 09:36] LABS: HCT 33.7 % (34.0-46.0); HGB 11.2 gm/dL (11.4-16.0); MCH 29.5 pg (25.0-35.0); MCHC 33.2 g/dL (31.0-37.0); MCV 88.8 fL (80.0-100.0); Platelet Count 234 k/uL (150-450); RDW 13.4 % (11.5-15.5); WBC 15.2 k/uL (3.8-10.6)
[2021-12-06] MEDS ORDERED: POTASSIUM CHLORIDE ER 20 MEQ TAB.ER PO STA ×2 (10:43→10:51)
[2021-12-06] MEDS ORDERED: POTASSIUM CHLORIDE 10 MEQ in WATER FOR INJECTION 1 100ML.BAG IVPB SCH (11:00)
--- NOTE | 2021-12-06 11:08 | P.PN ---
<Yasmeen Arreguin - Last Filed: 12/06/21 11:03> Subjective Progress Note Date: 12/06/21 CHIEF COMPLAINT: Gallstone Pancreatitis HISTORY OF PRESENT ILLNESS: Patient is status post laparoscopic cholecystectomy. Postop day #2. Her pain is controlled. She is tolerating diet. She is having flatus. Denies any bowel movement. She has been up and ambulating. She is followed by cardiology for her atrial fibrillation with rapid ventricular response. Her Eliquis has been restarted. Afebrile. Heart rate 117 WBC 13.9 up to 15.2 Hgb 11.2 platelets 234 sodium 131 potassium 2.7 creatinine 0.80 magnesium 1.9 PHYSICAL EXAM: VITAL SIGNS: Reviewed. GENERAL: Well-developed in no acute distress. HEENT: No sclera icterus. Extraocular movements grossly intact. Moist buccal mucosa. Head is atraumatic, normocephalic. ABDOMEN: Soft. nondistended. Incision sites clean dry and intact NEUROLOGIC: Alert and oriented. Cranial nerves II through XII grossly intact. ASSESSMENT: 1. Acute gallstone pancreatitis status post laparoscopic cholecystectomy 2. Leukocytosis 3. Hypokalemia PLAN: -Okay to restart Eliquis -Continue low-fat diet -Encourage patient to ambulate -Continue [place] as needed for pain -Potassium being replaced -Monitor CBC Physician Electrical Assemblies Supervisor note has been reviewed by physician. Signing provider agrees with the documented findings, assessment, and plan of care. Objective - Vital Signs Vital signs: Vital Signs Temp 98.9 F 12/06/21 07:28 Pulse 117 H 12/06/21 07:28 Resp 18 12/06/21 07:28 BP 154/82 12/06/21 07:28 Pulse Ox 96 12/06/21 07:28 Intake & Output 12/05/21 12/06/21 12/06/21 18:59 06:59 18:59 Intake Total 10 240 Balance 10 240 Intake: IV 10 Invasive Line 1 10 Oral 240 Other: Voiding Method Toilet Toilet Toilet # Voids 2 1 - Labs CBC & Chem 7: 12/06/21 08:29 12/06/21 08:29 Labs: Abnormal Lab Results - Last 24 Hours (Table) 12/06/21 12/06/21 Range/Units 08:29 08:29 WBC 15.2 H (3.8-10.6) k/uL Hgb 11.2 L (11.4-16.0) gm/dL Hct 33.7 L (34.0-46.0) % Sodium 131 L (137-145) mmol/L Potassium 2.7 L* (3.5-5.1) mmol/L Glucose 157 H (74-99) mg/dL Calcium 7.6 L (8.4-10.2) mg/dL Total Protein 5.8 L (6.3-8.2) g/dL Albumin 3.0 L (3.5-5.0) g/dL <Lewis Multani - Last Filed: 12/06/21 14:16> Subjective I have personally seen and examined the patient, reviewed the COUNSELOR AT [employer] /PAs history, exam and MDM and agree with the assessment and plan as written. Based on total visit time, I have performed more than 50% of the visit. Patient doing well from a surgical standpoint. Still having some episodes of atrial fibrillation with high rates. Continue supplementation of hypokalemia. Continue diet as tolerated. Objective - Vital Signs Vital signs: Vital Signs Temp 99 F 12/06/21 11:17 Pulse 95 12/06/21 11:17 Resp 17 12/06/21 11:17 BP 159/80 12/06/21 11:17 Pulse Ox 96 12/06/21 11:17 Intake & Output 12/05/21 12/06/21 12/06/21 18:59 06:59 18:59 Intake Total 10 240 Balance 10 240 Intake: IV 10 Invasive Line 1 10 Oral 240 Other: Voiding Method Toilet Toilet Toilet # Voids 2 1 - Labs CBC & Chem 7: 12/06/21 08:29 12/06/21 08:29 Labs: Abnormal Lab Results - Last 24 Hours (Table) 12/06/21 12/06/21 Range/Units 08:29 08:29 WBC 15.2 H (3.8-10.6) k/uL Hgb 11.2 L (11.4-16.0) gm/dL Hct 33.7 L (34.0-46.0) % Sodium 131 L (137-145) mmol/L Potassium 2.7 L* (3.5-5.1) mmol/L Glucose 157 H (74-99) mg/dL Calcium 7.6 L (8.4-10.2) mg/dL Total Protein 5.8 L (6.3-8.2) g/dL Albumin 3.0 L (3.5-5.0) g/dL
--- NOTE | 2021-12-06 11:09 | P.PN ---
<Noah Guzman - Last Filed: 12/06/21 10:39> Subjective Progress Note Date: 12/06/21 Hospital course: Patient is a very pleasant 81-year-old female with a past medical history of h ypertension. She presented to the emergency department on 12/01/21 with a chief complaint of abdominal pain. Patient was found to have leukocytosis with WBC count of 18.0, acute kidney injury with BUN 23, creatinine 1.22 and GFR 42 baseline creatinine 0.7, elevated AST of 55 and elevated ALT of 38, troponin 0.014, an elevated amylase of 3067 with lipase of 12,416. Urinalysis was negative for infection and Covid PCR negative. EKG revealed sinus rhythm at 74 bpm with no noted T-wave or ST abnormalities. CT abdomen and pelvis revealing right-sided retroperitoneal edema with fluid in the anterior pararenal space and adjacent to the duodenum, could relate to some duodenitis, no significant edema noted of the pancreatic head and no pancreatic mass reported, pancreatitis is not excluded. Gallbladder ultrasound revealed numerous gallstones with no dilated ducts reported. Patient was admitted under our services with consultation to general surgery. Patient underwent laparoscopic cholecystectomy on 12/04/21. After surgery patient was found to have postoperative hypertension with an irregular heart rate and was found to be in atrial fibrillation with RVR. Patient was started on Cardizem drip and transferred to cardiac unit with consultation to cardiology. Echocardiogram revealed EF greater than 55% with no significant valvular abnormalities. Physical exam: Patient seen and fully evaluated at the bedside this morning. Patient reports feeling better today and denies any abdominal pain, nausea, or vomiting. Pt denies having a bowel movement or passing flatus since surgery. BS x 4 quadrants normal. She did go back into a-fib RVR this morning. She was started on amiodarone and her metoprolol was increased. Patient was also started on anticoagulation with Eliquis due to recurrent episode and [id number] score of 3. Patient admits to feeling palpitations but denies any other complaints including headache, lightheadedness, dizziness, chest pain, shortness of breath, or experiencing any numbness/tingling/weakness/swelling in her extremities. Echocardiogram revealed an EF greater than 55% with no significant valvular abnormalities. Vital signs reviewed and stable. General: Nontoxic, no distress and appears stated age. Derm: Skin warm and dry, normal coloration for ethnicity. Head: Atraumatic, normocephalic and symmetric. Eyes: EOMs intact, no lid lag, and anicteric sclera Mouth: no lip lesions, mucus membranes moist Cardiovascular: irregularly irregular, no murmur, positive posterior tibial pulses bilaterally, and cap refill < 2 seconds. Lungs: Respirations even, regular, and unlabored on room air. Lungs CTA b ilaterally, no rhonchi, no rales, no wheezing, and no accessory muscle usage. Abdominal: soft, nontender to palpation, no guarding, no appreciable organomegaly Ext: ROM intact. No gross muscle atrophy, no edema, no contractures Neuro: Speech clear, face symmetrical and CN II-XII grossly intact with no noted focal neuro deficits Psych: Alert and oriented to person, place, time, and situation. Appropriate and pleasant affect. Assessment and Plan of Care: Acute pancreatitis resulting from numerous gallstones Cholelithiasis, ultrasound revealing numerous gallstones Status post laparoscopic cholecystectomy on 12/04/21 -Low fat diet -Triglyceride level normal at 106.00 -Symptomatic care and pain management, Zofran as needed for nausea Dilaudid as needed for pain -GI prophylaxis with Protonix -Gen. surgery following, patient underwent laparoscopic cholecystectomy on 12/04/21 New-onset atrial fibrillation with RVR -Pt started on anticoagulation with Eliquis 5 mg BID -Echocardiogram to be completed -Cardiology following, started patient on amiodarone 400 mg BID and increased metoprolol to 50 mg BID. -TSH 1.900. Hypokalemia -Replaced, continue to monitor with repeat a.m. labs Incidental finding on imaging Adrenal mass -CTA revealing low-density oval-shaped 1.7 cm right adrenal mass suggestive of benign disease. -Recommend follow-up for repeat testing/monitoring with PCP. Hypertension Lisinopril/hydrochlorothiazide held at this time. Order placed for lisinopril [address] Monitor vital signs CODE STATUS: Full code DVT prophylaxis: Heparin Discussed with: Patient and RN Anticipated discharge date: Possibly tomorrow morning, pending clinical course. Anticipated discharge place: Home A total of 40 minutes was spent on the care of this complex patient more than 50% of the time was spent in counseling and care coordination. Objective - Vital Signs Vital signs: Vital Signs Temp 98.9 F 12/06/21 07:28 Pulse 117 H 12/06/21 07:28 Resp 18 12/06/21 07:28 BP 154/82 12/06/21 07:28 Pulse Ox 96 12/06/21 07:28 Intake & Output 12/05/21 12/06/21 12/06/21 18:59 06:59 18:59 Intake Total 10 Balance 10 Intake: IV 10 Invasive Line 1 10 Other: Voiding Method Toilet Toilet # Voids 2 1 - Labs CBC & Chem 7: 12/06/21 08:29 12/06/21 08:29 <Thelma Hicks - Last Filed: 12/06/21 16:55> Subjective Noah Guzman NP rendered care for this patient independently, reviewed the findings and plan as documented in the note above. I did not physically speak with or examine the patient on this date. Objective - Vital Signs Vital signs: Vital Signs Temp 98.3 F 12/06/21 16:38 Pulse 101 H 12/06/21 16:38 Resp 19 12/06/21 16:38 BP 162/79 12/06/21 16:38 Pulse Ox 98 12/06/21 16:38 Intake & Output 12/05/21 12/06/21 12/06/21 18:59 06:59 18:59 Intake Total 10 240 Balance 10 240 Intake: IV 10 Invasive Line 1 10 Oral 240 Other: Voiding Method Toilet Toilet Toilet # Voids 2 1 2 - Labs CBC & Chem 7: 12/06/21 08:29 12/06/21 08:29 Labs: Abnormal Lab Results - Last 24 Hours (Table) 12/06/21 12/06/21 Range/Units 08:29 08:29 WBC 15.2 H (3.8-10.6) k/uL Hgb 11.2 L (11.4-16.0) gm/dL Hct 33.7 L (34.0-46.0) % Sodium 131 L (137-145) mmol/L Potassium 2.7 L* (3.5-5.1) mmol/L Glucose 157 H (74-99) mg/dL Calcium 7.6 L (8.4-10.2) mg/dL Total Protein 5.8 L (6.3-8.2) g/dL Albumin 3.0 L (3.5-5.0) g/dL
[2021-12-06] MEDS: POTASSIUM CHLORIDE 10 MEQ in WATER FOR INJECTION 1 100ML.BAG IVPB SCH ×4 (11:31→15:05)
[2021-12-06] MEDS ORDERED: DEXAMETHASONE SOD PHOSPHATE 4 MG/ML 1 ML VIAL IV ONE (19:34)
[2021-12-06] MEDS ORDERED: ONDANSETRON 4 MG/2 ML VIAL IVP ONE (19:34)
[2021-12-06] MEDS ORDERED: LACTATED RINGERS 1,000 ML IV SCH (19:34)
[2021-12-07 07:17] LABS: Basophils % (A) 0 %; Eosinophils # (A) 0.2 k/uL (0-0.7); Eosinophils % (A) 2 %; HCT 32.7 % (34.0-46.0); HGB 10.9 gm/dL (11.4-16.0); Lymphocytes # (A) 1.2 k/uL (1.0-4.8); Lymphocytes % (A) 12 %; MCH 29.1 pg (25.0-35.0); MCHC 33.2 g/dL (31.0-37.0); MCV 87.5 fL (80.0-100.0); Mean Platelet Volume 8.6; Monocytes # (A) 0.7 k/uL (0-1.0); Monocytes % (A) 7 %; Neutrophils # (A) 8.1 k/uL (1.3-7.7); Neutrophils % (A) 78 %; Platelet Count 248 k/uL (150-450); RBC 3.73 m/uL (3.80-5.40); RDW 13.4 % (11.5-15.5); WBC 10.4 k/uL (3.8-10.6)
[2021-12-07 07:45] LABS: Calcium 7.4 mg/dL (8.4-10.2)
[2021-12-07] MEDS ORDERED: POTASSIUM CHLORIDE ER 20 MEQ TAB.ER PO STA (07:54)
[2021-12-07 07:57] VITALS: RESP 17
[2021-12-07] MEDS ORDERED: METOPROLOL TARTRATE 25 MG TAB PO SCH (09:15)
[2021-12-07] MEDS: POTASSIUM CHLORIDE 10 MEQ in WATER FOR INJECTION 1 100ML.BAG IVPB SCH ×2 (09:47→12:32)
[2021-12-07] MEDS: APIXABAN 5 MG TAB PO SCH (09:47)
[2021-12-07] MEDS: hydroCHLOROthiazide 25 MG TAB PO SCH (09:47)
[2021-12-07] MEDS: PANTOPRAZOLE 40 MG/10 ML VIAL IV SCH (09:47)
[2021-12-07] MEDS: lisinopriL 20 MG TAB PO SCH (09:47)
[2021-12-07] MEDS: AMIODARONE 200 MG TAB PO SCH (09:47)
--- NOTE | 2021-12-07 10:37 | CDI ---
Documentation Clarification Form Date: 12/07/2021 09:49:11 AM From: Ruthy Ly RN, CCDS Admit Date: 12/01/2021 08:51:00 PM Patient Name: Dedra Lynn Visit Number: [id number] Discharge Date: ATTENTION: The Clinical Documentation Specialists (CDI) and [facility] Coding Staff appreciate your assistance in clarifying documentation. Please respond to the clarification below the line at the bottom and electronically sign. The CDI & [facility] Coding staff will review the response and follow-up if needed. Please note: Queries are made part of the Legal Health Record. If you have any questions, please contact the author of this message via ITS. Dr. Thelma Hicks Postoperative hypertension is documented in the progress note on 12/05/21 and subsequent progress notes and patient had laparoscopic cholecystectomy on 12/04/21. . Additional clarification is requested regarding the relationship, if any, that exists between the diagnosis and the procedure. Patients Admitting Diagnosis: Gallstone pancreatitis Post-Operative Diagnosis: Same Procedure performed: Laparoscopic cholecystectomy 12/04/21 History/Risk Factors: Hypertension Clinical Indicators: 81-year-old female present with abdominal pain, ruled in for gallstone pancreatitis and had a lap cholecystectomy. Progress note on 12/04/21 notes acute hypertension post op with irregular heart rate, atrial fibrillation with RVR. . Pain the same as prior to OR. She has a past medical history of hypertension. 12/04/21 17:00 BP 211/104 (18:07) BP 201/74 (20:00) BP 168/79 p109 Treatment: Telemetry Monitoring Monitor vital signs Dilaudid 0.5 MG IVP Once 12/04 @ 13:27 and @17:55 Lisinopril 20 MG PO Daily Hydrodiuril 25 MG PO Daily Lopressor 25MG PO BID (12/05/21) Increased to 75 MG PO BID (12/07) ECHO () Atrial fibrillation. LV size, wall thickness and systolic function are normal, with an EF greater than 55 % What relationship, if any, exists between the diagnosis of Post-operative Hypertension and the procedure? [ ] Post-operative Hypertension is a complication of surgical procedure [ ] Post-operative Hypertension is an expected outcome of the surgical procedure [ ] Post-operative Hypertension is related to patients co-morbid condition(s) of hypertension (other specify) & not a complication of the procedure [ ] Post-operative Hypertension has been ruled out [ ] Other please specify ____ [ ] Unable to determine (Template Last Revised: January 2021) other HTN related to development of A fib with RVR and not directly to the procedure. MTDD
--- NOTE | 2021-12-07 11:09 | CDI ---
Documentation Clarification Form Date: 12/07/2021 10:40:31 AM From: Ruthy Ly RN, CCDS Admit Date: 12/01/2021 08:51:00 PM Patient Name: Dedra Lynn Visit Number: [id number] Discharge Date: ATTENTION: The Clinical Documentation Specialists (CDI) and [facility] Coding Staff appreciate your assistance in clarifying documentation. Please respond to the clarification below the line at the bottom and electronically sign. The CDI & [facility] Coding staff will review the response and follow-up if needed. Please note: Queries are made part of the Legal Health Record. If you have any questions, please contact the author of this message via ITS. Dr. Tate Douglas Atrial Fibrillation is documented in the progress notes starting 12/04/21 and patient had laparoscopic cholecystectomy on 12/04/21. Additional clarification is requested regarding the relationship, if any, that exists between the diagnosis atrial fibrillation and the procedure. 12/05 Cardiology consult: her initial EKG showed sinus mechanism with no acute ST segment changes: Impression: Paroxysmal atrial fibrillation, back in sinus mechanism 12/06 Cardiology progress note Atrial fibrillation post-surgery, She has prior palpitations at home and I would suspect that she has paroxysmal atrial fibrillation. Blood pressure 154/80 heart rate 117. Telemetry shows paroxysmal atrial fibrillation Patients Admitting Diagnosis: Gallstone Pancreatitis Post-Operative Diagnosis: Same Procedure performed: Laparoscopic cholecystectomy 12/04/21 History/Risk Factors: Hypertension Clinical Indicators: 81-year-old female present with abdominal pain, ruled in for gallstone pancreatitis and had a lap cholecystectomy. Progress note on 12/04/21 notes acute hypertension post op with irregular heart rate, atrial fibrillation with RVR. Treatment: Telemetry Monitoring Cardizem 4 MG IV Once then 5 MG drip 12/04-12/05 Eliquis 5MG BID 12/06 Amiodarone 400 MG BID 12/06 (for one week then 200MG PO BID Lisinopril 20 MG PO Daily Hydrodiuril 25 MG PO Daily Lopressor 25MG PO BID (12/05/21) Increased to 75 MG PO BID (12/07) ECHO (12/05/21) atrial fibrillation. LV size, wall thickness and systolic function are normal, with an EF greater than 55 % What relationship, if any, exists between the diagnosis of Atrial Fibrillation and the procedure: [ ] Atrial Fibrillation is a complication of surgical procedure [ ] Atrial Fibrillation is an expected outcome of the surgical procedure [ ] Atrial Fibrillation is related to patients co-morbid condition(s) of [insert co-morbid dxs] & not a complication of the procedure [ ] Other please specify ____ [ xxxx ] Unable to determine (Template Last Revised: January 2021) MTDD
--- NOTE | 2021-12-07 11:42 | P.DS ---
<Noah Guzman - Last Filed: 12/07/21 13:09> Providers Expected date of discharge: 12/07/21 Hospital Course: Discharge Diagnosis: Acute gallstone pancreatitis Status post laparoscopic cholecystectomy on 12/04/21 New-onset paroxysmal atrial fibrillation with RVR, -Pt started on anticoagulation with Eliquis 5 mg BID, amiodarone 400 mg BID and metoprolol 50 mg BID. Hypokalemia, Replaced Incidental finding on imaging Adrenal mass -CTA revealing low-density oval-shaped 1.7 cm right adrenal mass suggestive of benign disease. -Recommend follow-up for repeat testing/monitoring with PCP. Hypertension Hospital Course: Patient is a very pleasant 81-year-old female with a past medical history of hypertension. She presented to the emergency department on 12/01/21 with a chief complaint of abdominal pain. Patient was found to have leukocytosis with WBC count of 18.0, acute kidney injury with BUN 23, creatinine 1.22 and GFR 42 baseline creatinine 0.7, elevated AST of 55 and elevated ALT of 38, troponin 0.014, an elevated amylase of 3067 with lipase of 12,416. Urinalysis was negative for infection and Covid PCR negative. EKG revealed sinus rhythm at 74 bpm with no noted T-wave or ST abnormalities. CT abdomen and pelvis revealing right-sided retroperitoneal edema with fluid in the anterior pararenal space and adjacent to the duodenum, could relate to some duodenitis, no significant edema noted of the pancreatic head and no pancreatic mass reported, pancreatitis is not excluded. Gallbladder ultrasound revealed numerous gallstones with no dilated ducts reported. Patient was admitted under our services with consultation to general surgery. Patient underwent laparoscopic cholecystectomy on 12/04/21. After surgery patient was found to have postoperative hypertension with an irregular heart rate and was found to be in atrial fibrillation with RVR (identified as cause of hypotension. Patient was started on Cardizem drip and transferred to cardiac unit with consultation to cardiology. Echocardiogram revealed EF greater than 55% with no significant valvular abnormalities.TSH 1.900. Patient was weaned from Cardizem infusion and started on anticoagulation with Eliquis 5 mg BID, amiodarone 400 mg BID and metoprolol 50 mg BID. Patient did convert to normal sinus rhythm and then returned to A. fib ventricular rate was stabilized and ranging up to 110s. Pt has been cleared from cardiology to follow up outpatient in their office. Pt is medically stable for discharge home. Pt to follow up outpatient with PCP, Cardiology, and General surgery. Physical exam: Patient seen and fully evaluated at the bedside this morning. Patient reports feeling great and denies any complaints this morning including headache, lightheadedness, dizziness, chest pain, palpitations, SOB, abdominal pain, nausea, or vomiting. She reports tolerating oral intake and denies any postoperative pain. Pt's morning labs were reviewed showing hypokalemia with. K+ 3.0 and was replaced. Vital signs reviewed and stable. General: Nontoxic, no distress and appears stated age. Derm: Skin warm and dry, normal coloration for ethnicity. Head: Atraumatic, normocephalic and symmetric. Eyes: EOMs intact, no lid lag, and anicteric sclera Mouth: no lip lesions, mucus membranes moist Cardiovascular: irregularly irregular, no murmur, positive posterior tibial pul ses bilaterally, and cap refill < 2 seconds. Lungs: Respirations even, regular, and unlabored on room air. Lungs CTA bilaterally, no rhonchi, no rales, no wheezing, and no accessory muscle usage. Abdominal: soft, nontender to palpation, no guarding, no appreciable organomegaly Ext: ROM intact. No gross muscle atrophy, no edema, no contractures Neuro: Speech clear, face symmetrical and CN II-XII grossly intact with no noted focal neuro deficits Psych: Alert and oriented to person, place, time, and situation. Appropriate and pleasant affect. A total of 45 minutes of time were spent preparing this complex discharge summary. Patient Condition at Discharge: Stable Plan - Discharge Summary New Discharge Prescriptions: New Metoprolol Tartrate [Lopressor] 50 mg PO BID 30 Days #60 tab Apixaban [Eliquis] 5 mg PO BID #60 tab Amiodarone [Cordarone] 400 mg PO BID #180 tab Continue ALPRAZolam [Xanax] 0.25 mg PO BID PRN PRN Reason: Anxiety Lisinopril-Hctz 20-12.5 mg [Zestoretic 20-12.5] 1 tab PO HS Discharge Medication List ALPRAZolam [Xanax] 0.25 mg PO BID PRN 06/19/16 [History] Lisinopril-Hctz 20-12.5 mg [Zestoretic 20-12.5] 1 tab PO HS 04/25/21 [History] Apixaban [Eliquis] 5 mg PO BID #60 tab 12/06/21 [Rx] Amiodarone [Cordarone] 400 mg PO BID #180 tab 12/07/21 [Rx] Metoprolol Tartrate [Lopressor] 50 mg PO BID 30 Days #60 tab 12/07/21 [Rx] Follow up Appointment(s)/Referral(s): Lewis Multani MD [Medical Doctor] - 1 Week (Office is closed; please call Friday to schedule followup appointment within 1 week. ) Tate Douglas MD [STAFF PHYSICIAN] - 12/14/21 1:45 pm ([place] [facility] ) Frankie Cardenas MD [Primary Care Provider] - 12/13/21 11:00 am Patient Instructions/Handouts: *[facility] - Laparoscopic Cholecystectomy Discharge Instructions, *[facility] - ([facility]) Laparoscopic Cholecystectomy, *[facility] - Managing Your Pain After Surgery Without Opioids, A-fib (Atrial Fibrillation) (DC), Pancreatitis (DC), Gallstones (DC) Activity/Diet/Wound Care/Special Instructions: Activity: As tolerated. Take breaks as needed. Diet: Low-fat Heart healthy diet. Avoid salts, or foods with hidden salts such as canned or boxed foods and frozen dinners. Extra salt makes your heart work harder and traps the fluid in your body for longer. Special Instructions: Take all of your medications as directed and remember to keep all of your doctor's appointments and follow-up as needed. Thank you for allowing us to participate in your care, it was truly a pleasure having you for our patient!!! CTA revealed low density adrenal mass suggestive of benign disease, however recommend follow up with a repeat CTA in 3-6 months, this can be ordered by your primary care physician for follow up. Eliquis covered by insurance with a co-pay of $43.50 Discharge Disposition: HOME SELF-CARE <Thelma Hicks - Last Filed: 12/07/21 15:24> Providers Date of admission: 12/01/21 20:51 Attending physician: Orquidea Oliveira MD Consults: 12/02/21 00:11 Consult Physician Urgent Consulting Provider: Lewis Multani Consult Reason/Comments: Pancreatitis, dilated gallbladder Do you want consulting provider notified?: Yes 12/04/21 20:03 Consult Physician Routine Consulting Provider: Ady Rodriguez Consult Reason/Comments: new onset Afib RVR Do you want consulting provider notified?: Yes, Notify in am Primary care physician: [place] Hospital Course: Noah Guzman NP rendered care for this patient independently, reviewed the findings and plan as documented in the note above. I did not physically speak with or examine the patient on this date.
--- NOTE | 2021-12-07 12:29 | P.PN ---
Subjective Progress Note Date: 12/07/21 HISTORY OF PRESENT ILLNESS: The patient is an 81-year-old female who presented with abdominal discomfort, was found to have acute pancreatitis and cholelithiasis, underwent surgery. She had atrial fibrillation post surgery. Her echocardiogram showed a preserved systolic function. She had recurrent atrial fibrillation on and off yesterday and she is back in atrial fibrillation this morning. She has prior palpitations are home and I would suspect that she has paroxysmal atrial fibrillation. She denies any chest discomfort or dyspnea. She has no PND or orthopnea. Her abd ominal discomfort is better. She is tolerating by mouth intake. 12/07/2021 Patient examined this morning at the bedside. Patient denies chest pain or pressure. She denies shortness of breath. Telemetry reveals sinus mechanism. Vital signs are stable. Patient's potassium is low this morning and she has received oral supplementation. PHYSICAL EXAM: VITAL SIGNS: Reviewed. GENERAL: Well-developed in no acute distress. NECK: Supple. No JVD or thyromegaly LUNGS: Respirations even and unlabored. Lungs essentially clear to auscultation bilaterally. HEART: Regular rate and rhythm. S1 and S2 heard. The stylet murmur noted. EXTREMITIES: Normal range of motion. No clubbing or cyanosis. Peripheral pulses intact. No lower extremity edema ASSESSMENT: Status post cholecystectomy with pancreatitis Paroxysmal atrial fibrillation Hypertension Hypokalemia PLAN: Continue current cardiac medications Continue anticoagulation with Eliquis Continue amiodarone: 400 mg twice a day for a total of one week, then decrease dosage to 200 mg twice a day for one week, then decrease dosage to 200 mg daily Patient is stable for discharge home today from a cardiac standpoint She is to follow up on an outpatient basis Nurse practitioner note has been reviewed by physician. Signing provider agrees with the documented findings, assessment, and plan of care. Objective - Vital Signs Vital signs: Vital Signs Temp 98.4 F 12/07/21 07:56 Pulse 64 12/07/21 07:56 Resp 17 12/07/21 07:56 BP 169/77 12/07/21 07:56 Pulse Ox 98 12/07/21 07:56 Intake & Output 12/06/21 12/07/21 12/07/21 18:59 06:59 18:59 Intake Total 240 240 Output Total 200 Balance 240 -200 240 Intake: Oral 240 240 Output: Urine 200 Other: Voiding Method Toilet Toilet Toilet # Voids 2 - Labs CBC & Chem 7: 12/07/21 06:30 12/07/21 06:30 Labs: Abnormal Lab Results - Last 24 Hours (Table) 12/06/21 12/07/21 12/07/21 Range/Units 18:12 06:30 06:30 RBC 3.73 L (3.80-5.40) m/uL Hgb 10.9 L (11.4-16.0) gm/dL Hct 32.7 L (34.0-46.0) % Neutrophils # 8.1 H (1.3-7.7) k/uL Sodium 134 L (137-145) mmol/L Potassium 3.4 L 3.0 L (3.5-5.1) mmol/L Glucose 112 H (74-99) mg/dL Calcium 7.4 L (8.4-10.2) mg/dL
[2021-12-07 13:24] VITALS: BMI 26.4
[2021-12-07 13:42] VITALS: BP 153/107; PULSE 60; TEMP 97.9
--- NOTE | 2021-12-07 14:17 | P.PN ---
Subjective Progress Note Date: 12/07/21 Principal diagnosis: Gallstone pancreatitis Patient doing well today. She is going home. Tolerating diet. No pain. Objective - Vital Signs Vital signs: Vital Signs Temp 97.9 F 12/07/21 12:00 Pulse 60 12/07/21 12:00 Resp 17 12/07/21 12:00 BP 153/107 12/07/21 12:00 Pulse Ox 99 12/07/21 12:00 Intake & Output 12/06/21 12/07/21 12/07/21 18:59 06:59 18:59 Intake Total 240 480 Output Total 200 Balance 240 -200 480 Weight 63.503 kg Intake: Oral 240 480 Output: Urine 200 Other: Voiding Method Toilet Toilet Toilet # Voids 2 1 - Exam Abdomen: Soft, nondistended, incisions clean and dry, nontender - Labs CBC & Chem 7: 12/07/21 06:30 12/07/21 06:30 Labs: Abnormal Lab Results - Last 24 Hours (Table) 12/06/21 12/07/21 12/07/21 Range/Units 18:12 06:30 06:30 RBC 3.73 L (3.80-5.40) m/uL Hgb 10.9 L (11.4-16.0) gm/dL Hct 32.7 L (34.0-46.0) % Neutrophils # 8.1 H (1.3-7.7) k/uL Sodium 134 L (137-145) mmol/L Potassium 3.4 L 3.0 L (3.5-5.1) mmol/L Glucose 112 H (74-99) mg/dL Calcium 7.4 L (8.4-10.2) mg/dL Assessment and Plan (1) Acute gallstone pancreatitis Narrative/Plan: Patient doing well from a surgical point of view. May discharge. Follow-up one week. Current Visit: Yes Status: Acute Code(s): K85.10 - BILIARY ACUTE PANCRE ATITIS WITHOUT NECROSIS OR INFECTION SNOMED Code(s): 349445842
[2021-12-07] MEDS ORDERED: METOPROLOL TARTRATE 50 MG TAB PO SCH (21:00)
[2021-12-08] MEDS ORDERED: POTASSIUM CHLORIDE ER 20 MEQ TAB.ER PO SCH (09:00)
== END 2021-12-07 16:02 | disposition home or self-care (01) | DRG 418 ==
LOC: EC 18:06 → 5NMEDONC 20:51 → 3SCARD 12-04 19:46
PROVIDERS: ADMIT Internal Medicine; ATTEND Internal Medicine
PROC: 0FT44ZZ Resection of Gallbladder, Percutaneous Endoscopic Approach (ICD-10-PCS; principal; 2021-12-04 07:30)
DX: K85.10 Biliary acute pancreatitis without necrosis or infection (principal); E87.1 Hypo-osmolality and hyponatremia; N17.9 Acute kidney failure, unspecified; K80.20 Calculus of gallbladder without cholecystitis without obstruction; Z20.822 Contact with and (suspected) exposure to COVID-19; E86.0 Dehydration; E87.6 Hypokalemia; I10 Essential (primary) hypertension; I48.0 Paroxysmal atrial fibrillation; E27.9 Disorder of adrenal gland, unspecified; F41.9 Anxiety disorder, unspecified; Z79.899 Other long term (current) drug therapy
CPT/HCPCS: 36415; 71045; 74160; 76705; 80048; 80053; 80061; 81003; 82150; 83036; 83615; 83690; 83735; 84132; 84443; 84484; 85025; 85027; 85610; 85730; 87635; 88304; 93005; 93306; 96361; 96372; 96374; 96375; 99285

== ENCOUNTER 2022-01-22 07:18 | Day surgery (SDC) | payer MEDICARE ==
[2022-01-18 10:36] VITALS: BMI 32.5
[~2022-01-22 07:18] MED LIST: ALPRAZolam 0.25 MG TAB PO PRN; ALPRAZolam 0.5 MG TAB PO PRN; ASPIRIN 325 MG TAB PO STA; ATORVASTATIN 80 MG TAB PO STA; NITROGLYCERIN SL TABS 0.4 MG TAB SUBLINGUAL PRN; SODIUM CHLORIDE 0.9% 1,000 ML in EMPTY BAG 1 BAG IV SCH
[2022-01-22] MEDS ORDERED: SODIUM CHLORIDE 0.9% 1,000 ML IV ONE (07:26)
[2022-01-22 07:53] LABS: Basophils # (A) 0.1 k/uL (0-0.2); Basophils % (A) 1 %; Eosinophils # (A) 0.1 k/uL (0-0.7); Eosinophils % (A) 2 %; HCT 37.2 % (34.0-46.0); HGB 12.4 gm/dL (11.4-16.0); Lymphocytes # (A) 1.6 k/uL (1.0-4.8); Lymphocytes % (A) 20 %; MCH 29.6 pg (25.0-35.0); MCHC 33.2 g/dL (31.0-37.0); MCV 89.1 fL (80.0-100.0); Mean Platelet Volume 10.4; Monocytes # (A) 0.5 k/uL (0-1.0); Monocytes % (A) 6 %; Neutrophils # (A) 5.4 k/uL (1.3-7.7); Neutrophils % (A) 70 %; Platelet Count 225 k/uL (150-450); RBC 4.18 m/uL (3.80-5.40); RDW 13.1 % (11.5-15.5); WBC 7.7 k/uL (3.8-10.6)
[2022-01-22 07:54] VITALS: TEMP 98.2
[2022-01-22 08:08] LABS: Calcium 8.7 mg/dL (8.4-10.2)
[2022-01-22] MEDS ORDERED: VERAPAMIL 2.5 MG/ML 2 ML AMP ONE (09:33)
[2022-01-22] MEDS ORDERED: LIDOCAINE 1% INJ 10MG/ML (20 ML MDV) ONE (09:33)
[2022-01-22] MEDS ORDERED: HEPARIN SODIUM 1,000 UN/ML (10ML VL) ONE (09:34)
[2022-01-22] MEDS ORDERED: fentaNYL (PF) 50 MCG/ML 2 ML AMP ONE (09:34)
[2022-01-22] MEDS ORDERED: fentaNYL (PF) 50 MCG/ML 2 ML AMP IV ONE (10:05)
[2022-01-22] MEDS ORDERED: LIDOCAINE 1% INJ 10MG/ML (20 ML MDV) SQ ONE ×2 (10:06→10:07)
[2022-01-22] MEDS ORDERED: VERAPAMIL SYRINGE (5 MG/10 ML) INTRAARTER ONE (10:08)
[2022-01-22] MEDS ORDERED: MIDAZOLAM 2 MG/2 ML VIAL IV ONE (10:14)
[2022-01-22] MEDS ORDERED: IOPAMIDOL-370 125ML BTL INJ ONE (10:17)
[2022-01-22] MEDS ORDERED: RX INFO: IV CONTRAST WAS GIVEN 1 EACH MISC MISCELLANE PRN (10:26)
[2022-01-22] MEDS ORDERED: SODIUM CHLORIDE 0.9% 1,000 ML IV SCH (10:30)
--- NOTE | 2022-01-22 10:32 | P.CARDCATH ---
Date of Procedure: 01/22/22 Description of Procedure: Cardiac Catheterization: The patient is an 81-year-old female with a history of hypertension, paroxysmal atrial fibrillation who recently had an abnormal MPI with lateral wall ischemia of moderate size Recommendations were made regarding cardiac catheterization, the risks and the complications were discussed with the patient who is in full understanding and agreement. 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 Using Xylocaine Anesthesia and Seldinger technique, a 6-[place] sheath was introduced in the right radial artery . Subsequently, selective coronary angiography performed using a 5-[place] 3.5 bend Suzette catheter. Multiple views of the coronary artery including hemiaxial views were obtained. The 5-[place] pigtail catheter was used to cross the aortic valve and LV EDP was calculated. Following that, catheter and sheath were removed. Hemostasis was obtained with deployment of TR band . There was no immediate complication. Patient was returned to room in stable condition. Of note, the patient received a total of 3500 units of intravenous heparin as well as intra-arterial verapamil. There was no immediate complications. Findings: Left main: This is a short size vessel, bifurcating into LAD and left circumflex, left main has no high-grade stenosis LAD: This is a large size vessel, giving rise to 2 diagonal branch, tortuous in the midsegment. LAD has no high-grade stenosis Left circumflex: This is a nondominant vessel giving rise to a large obtuse marginal branch the left circumflex and its branches have no obstructive disease RCA: This is a dominant vessel giving rise to a PDA and PLV. The mid RCA has stent [Left] Ventriculogram: Was not performed Hemodynamics: There was no gradient across the aortic valve, LVEDP 16-20 mmHg Conclusion: 1. Mild disease in the mid RCA 2. Right dominance Recommendations: I will continue aggressive coronary risks modifications. The findings and recommendations were discussed with the patient and her family and they are in full understanding and agreement. Duration of sedation is 13 minutes.
[2022-01-22 13:34] VITALS: BP 162/78
[2022-01-22 15:04] VITALS: PULSE 52; RESP 18
[2022-01-22] MEDS ORDERED: LISINOPRIL-HCTZ 20-12.5 MG 1 EACH TAB PO SCH (21:00)
[2022-01-22] MEDS ORDERED: METOPROLOL TARTRATE 25 MG TAB PO SCH (21:00)
[2022-01-23] MEDS ORDERED: AMIODARONE 100 MG TAB PO SCH (09:00)
[2022-01-23] MEDS ORDERED: ASPIRIN 81 MG PO SCH (09:00)
[2022-01-23] MEDS ORDERED: ESCITALOPRAM 5 MG TAB PO SCH (09:00)
[2022-01-23] MEDS ORDERED: OXYBUTYNIN 10 MG TAB.ER.24 PO SCH (09:00)
== END 2022-01-22 15:04 | disposition home or self-care (01) ==
LOC: CATHCVL 07:18
PROVIDERS: ATTEND Internal Medicine Interventional Cardiology
DX: I25.10 Atherosclerotic heart disease of native coronary artery without angina pectoris (principal); Z20.822 Contact with and (suspected) exposure to COVID-19
CPT/HCPCS: 93458; 80048; 85025; 87635; C1894; C1769; J2250; J2001; J3010; J1644; Q9967